=== PATIENT | female | born 1935 | race Caucasian/White ===

== ENCOUNTER → 2017-01-22 | Outpatient (REF) | payer MEDICARE ==
[2017-01-23 14:20] LABS: FERRITIN 10 NG/ML (8-252); PERCENT SATURATION 14.9 % (13.2-37.4); TOTAL IRON BINDING CAPACITY 415 UG/DL (250-450)
[2017-01-23 14:39] LABS: VITAMIN B12 LEVEL 425 PG/ML
[2017-01-23 14:48] LABS: FOLATE > 24.0 NG/ML
== END ==
LOC: M LAB REF 13:05
PROVIDERS: ATTEND Internal Medicine
DX: D64.9 Anemia, unspecified (principal)

== ENCOUNTER → 2017-01-30 | Outpatient (CLI) | payer MEDICARE ==
[~2017-01-30] MED LIST: ASPI81TA85 PO; ATEN25TA PO; AZAT5TAB PO; BENT10CA PO; BUSP15TA47 PO; CALC250T PO; CALC600T10 PO; KRIL1000 PO; LIAL1.2T PO; LISI20TA3 PO; POTA20TA PO; PRIL20CA9 PO; TYLE500T78 PO; VITA100041 PO; VYTO10TA PO
--- NOTE | 2017-01-30 13:51 | REP ---
CHEST PA AND LATERAL: 01/30/2017. Comparison 03/10/2012. Clinical history: Coronary disease. Lungs are hyperinflated with increased AP diameter of the retrosternal clear space is prominent as well. There is fibrosis, mild and pulmonary hypertension with COPD. Some upper chest bullous emphysematous changes seen to axillary clips are noted on the right. No cardiomegaly, vascular redistribution and a although the left atrium is enlarged. There is calcified aortic arch without aneurysm. Airway intact bony thorax shows demineralization without compression deformity. Impression: 1. COPD with pulmonary hypertension. Some minor fibrotic change, bullous emphysematous changes and no acute infiltrate. 2. No cardiomegaly, edema or effusion. 3. Calcified aortic arch and some tortuosity without aneurysm. 4. Bones demineralized and without compression deformity. 5. There are axillary clips on the right, unchanged. Signed by Rancho Zelaya MD 01/30/2017 01:42 P
== END ==
LOC: M RAD 10:58
PROVIDERS: ATTEND Ophthalmology
DX: I25.10 Atherosclerotic heart disease of native coronary artery without angina pectoris (principal); J44.9 Chronic obstructive pulmonary disease, unspecified; I27.2 Other secondary pulmonary hypertension; I70.0 Atherosclerosis of aorta

== ENCOUNTER → 2017-02-07 | Day surgery (SDC) | payer MEDICARE ==
--- NOTE | 2017-01-24 18:35 | CR ---
DATE OF CONSULTATION: 01/22/2017 This is a preoperative consultation for Dr. Kalyan Alston for cataract extractions scheduled 02/08/2017 and 03/07/2017 at [facility]. Dear Dr. Alston, thank you for asking me to see Ms. Josette Bauer in consultation prior to her cataract extractions. Ms. Bauer is an 82-year-old female, past medical history of coronary artery disease, peripheral artery disease (PAD), and ulcerative colitis, presenting followup of [facility] as outlined in the assessment and plan with the following concerns: The patient reports she has been plagued with ulcerative colitis for several years. She is on Lialda, Imuran, and dicyclomine. She has good days and bad days, which are not always explainable but frustrating. She follows with Dr. Alston. The patient has known coronary artery disease. She did have an episode of brief sharp chest pain at rest but no recurrence with activity. Reports she maintains her home, cleaning and housework, and denies any chest pain, palpitations, syncope, or presyncope otherwise. She does get cramps in her lower extremity, reporting that she has PAD and must try to not be over active. She reports recently needing to completely move out of her apartment while her apartment was being upgraded. This was significant physical activity with no cardiac symptoms. The patient has known anxiety. She is maintained on buspirone and feels her symptoms are controlled. The patient had updated stress testing 04/06/2016 at [facility] and was felt to be a normal past. Her last echocardiogram was 10/30/2006 and showed no significant valvular disease. Estimated ejection fraction at 60%. Patient has a history of mild chronic obstructive pulmonary disease (COPD); it does not bother her. She has refused inhalers. The patient reports a history of multiple skin cancers on her face recently, which had been removed without complications. Review of systems otherwise negative except for occasional disequilibrium, some word finding difficulties, and some dysthymia since the loss of her . PAST MEDICAL HISTORY: 1. Coronary artery disease, status post angioplasty, complicated by dissection during stent placement 02/1991, cardiac catheterization 12/11/2006 normal, stress test 04/06/2016 normal at [facility]. 2. Hyperlipidemia. 3. Hypertension. 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 5. Osteopenia. 6. Cataracts. 7. Glaucoma. 8. Right breast cancer, released from oncology. 9. Ulcerative colitis, follows with Dr. Alston, on multiple immunosuppressants. 10. Osteoarthritis (OA), degenerative joint disease (DJD). 11. Peripheral artery disease per [facility] 11/02/2012. 12. Mild COPD with spirometry 04/06/2015 showing an FVC of 76%, an FEV1 of 74% with a ratio of 0.72. 13. Multiple facial skin cancers 2016. ALLERGIES: No known drug allergies. MEDICATIONS: - alendronate 70 mg weekly - enteric-coated aspirin 81 mg daily - atenolol 25 mg nightly - buspirone 15 mg 1/2 pill twice a day - calcium 500 mg twice a day - dicyclomine as needed - Imuran 50 mg daily - krill oil 1000 mg daily - Lialda 1.2 grams three daily - lisinopril HCT 20/25 daily - omeprazole 20 mg daily - potassium chloride 20 mEq daily - Tylenol 500 mg two by mouth twice a day - vitamin D3, 1000 international units daily - Vytorin 08/09 one daily SOCIAL HISTORY: times two, lives in [place], former smoker, quit at age 44 after approximately 20 pack-years history. Wine - two to three glasses a month for alcohol. FAMILY HISTORY: Father had hypertension, hyperlipidemia, of a heart attack in his 40s. Mother had breast cancer and of Alzheimer's. A brother had possible lung cancer at 66. Another brother heart disease, diabetes. Another brother hypertension, hyperlipidemia, prostate cancer. Two sisters have had hypertension and hyperlipidemia. PHYSICAL EXAMINATION: No acute distress. Vital signs are weight 167 with a body mass index (BMI) of 30, blood pressure 112/64 with a heart rate of 63. Her oxygen saturation is 98%. HEENT exam: Head is normocephalic. The patient has multiple surgical scars which are well healed from recent skin cancer removal. Neck is supple. Pupils equal, reactive to light. She does wear eyeglasses. Extraocular movements intact. Conjunctivae not injected. Sclerae anicteric. Vision grossly intact. Ears: Tympanic membranes slightly dull. No cervical lymphadenopathy, thyromegaly. Oropharynx is benign. No carotid bruits/jugular venous distention (JVD). Respiratory: Clear to auscultation, resonant to percussion. Breasts: Exam deferred. Cardiovascular: Regular rate and rhythm. No murmur, rub, gallop. She is bradycardic. Abdomen: Soft, nontender. No hepatosplenomegaly. Extremities: No cyanosis, clubbing, edema. She has some OA changes of the DIP joints. Dermatologic: No rashes, bruises, or lesions. Neurologic: Alert and oriented times three, some difficulty with names of medications. LABORATORY DATA: EKG: Sinus bradycardia, rate of 58. No significant change compared to previous EKG. 01/22/2017 med profile: Normal except for a GFR of 53. CBC normal except for a hemoglobin and hematocrit of 11.6 and 34. Normal magnesium and thyroid. Her last lipids were normal 09/25/2016 with a total cholesterol of 197. IMPRESSION: Ms. Josette Bauer, an 82-year-old female with multiple cardiovascular risk factors including coronary artery disease, hypertension, hyperlipidemia, family history, advanced age, has no significant signs or symptoms indicative of cardiovascular ischemia and has had a normal stress test in the last year. The patient is at low risk for cardiovascular complications from the proposed surgical intervention which can be further minimized by the following: PROBLEMS: 1. Coronary artery disease. Hold aspirin morning of surgery. Take atenolol and Vytorin as usual the evening prior to surgery. 2. Hypertension. Hold lisinopril HCT morning of surgery. Take atenolol as usual the evening prior to surgery. 3. Hyperlipidemia. Take Vytorin as usual the evening prior to surgery. Hold fish oil morning of surgery. 4. Chronic obstructive pulmonary disease. Minimally symptomatic. She has refused further evaluation/treatment. 5. Ulcerative colitis. Continue Lialda, Imuran, and dicyclomine and omeprazole morning of surgery. 6. Osteoarthritis, degenerative joint disease. I have approved the use of Tylenol morning of surgery. 7. Osteopenia. Hold vitamin D, calcium, and alendronate morning of surgery. 8. Anxiety. I have approved her usual dose of buspirone morning of surgery. 9. Multiple skin cancers. Follows with dermatology. 10. Anemia, mild. Expect related to multiple medications. Expect related to her very active ulcerative colitis as well. I will check iron studies, B12, folic acid, and contact the patient with results, recommendations. Certainly not a reason to delay surgery. Thank you very much for this consultation. Please call with questions or concerns.
[~2017-02-07] VITALS: Ht 158.8 cm; Wt 75.7 kg
[~2017-02-07] MED LIST changes: +ACETAMINOPHEN 325 MG TAB PO PRN; +ACETYLCHOLINE OPHTH SOLN 1% 2ML As Ordered ONE; +BALANCED SALT IRRIGATION SOLUTION 500ML BAG (FOR OR EYE MACHINE) As Ordered ONE; +CEFUROXIME 1MG/0.1ML INTRACAMERAL INJ As Ordered ONE; +HEALON DUET (HEALON 10MG/ML 0.55ML & HEALON ENDOCOAT 30MG/ML 0.85ML) As Ordered ONE; +LIDOCAINE 0.75%/EPINEPHRINE 0.025% IN BSS 1ML SYR INTRACAMERAL (OR ONLY) As Ordered ONE; +MIDAZOLAM INJ 2 MG/2 ML VIAL (J2250) As Ordered ONE; +OFLOXACIN 0.3 % (OCUFLOX) OPTH SOL 5ML OS ONE; +PHENYLEPHRINE 2.5% OPHTH SOL 2ML OS ONE; +POVIDONE-IODINE 5% OPHTH PREP SOL 30ML As Ordered ONE; +PROPARACAINE 0.5% OPHTH SOL 15ML OS ONE; +TOBRADEX OPHTH OINT 3.5 GM As Ordered ONE; +TRIMETHOBENZAMIDE 300 MG CAP PO PRN; +TROPICAMIDE 1% OPHTH SOLN 2 ML OS ONE; +fentaNYL 100 MCG/2 ML INJECTION (J3010) As Ordered ONE
[2017-02-07] MEDS: MANNITOL 25% 12.5 GM/50 ML VIAL (J2150) As Ordered ONE ×2 (10:22→10:24)
[2017-02-07] MEDS: AcetaZOLAMIDE 500 MG ER CAP PO SCH ×2 (11:12→11:49)
[2017-02-07 12:00] VITALS: BP 130/60
== END | disposition home or self-care (01) ==
LOC: M SDC 08:21
PROVIDERS: ATTEND Ophthalmology
DX: H25.12 Age-related nuclear cataract, left eye (principal); I25.10 Atherosclerotic heart disease of native coronary artery without angina pectoris; I10 Essential (primary) hypertension; Z98.61 Coronary angioplasty status; K21.9 Gastro-esophageal reflux disease without esophagitis; Z79.82 Long term (current) use of aspirin; J44.9 Chronic obstructive pulmonary disease, unspecified; Z79.899 Other long term (current) drug therapy; Z92.3 Personal history of irradiation; K58.8 Other irritable bowel syndrome
CPT/HCPCS: 66984; J2150; J2250; J3010; V2632

== ENCOUNTER → 2017-04-01 | Outpatient (REF) | payer MEDICARE ==
[~2017-04-01] MED LIST changes: -ACETAMINOPHEN 325 MG TAB PO PRN; -ACETYLCHOLINE OPHTH SOLN 1% 2ML As Ordered ONE; -BALANCED SALT IRRIGATION SOLUTION 500ML BAG (FOR OR EYE MACHINE) As Ordered ONE; -CEFUROXIME 1MG/0.1ML INTRACAMERAL INJ As Ordered ONE; -HEALON DUET (HEALON 10MG/ML 0.55ML & HEALON ENDOCOAT 30MG/ML 0.85ML) As Ordered ONE; -LIDOCAINE 0.75%/EPINEPHRINE 0.025% IN BSS 1ML SYR INTRACAMERAL (OR ONLY) As Ordered ONE; -MIDAZOLAM INJ 2 MG/2 ML VIAL (J2250) As Ordered ONE; -OFLOXACIN 0.3 % (OCUFLOX) OPTH SOL 5ML OS ONE; -PHENYLEPHRINE 2.5% OPHTH SOL 2ML OS ONE; -POVIDONE-IODINE 5% OPHTH PREP SOL 30ML As Ordered ONE; -PROPARACAINE 0.5% OPHTH SOL 15ML OS ONE; -TOBRADEX OPHTH OINT 3.5 GM As Ordered ONE; -TRIMETHOBENZAMIDE 300 MG CAP PO PRN; -TROPICAMIDE 1% OPHTH SOLN 2 ML OS ONE; -fentaNYL 100 MCG/2 ML INJECTION (J3010) As Ordered ONE
[2017-04-01 20:06] LABS: PERCENT SATURATION 22.3 % (13.2-37.4)
== END ==
LOC: M LAB REF 17:38
PROVIDERS: ATTEND Nurse Practitioner Family
DX: D50.9 Iron deficiency anemia, unspecified (principal)

== ENCOUNTER 2017-08-01 08:20 | Day surgery (SDC) | payer MEDICARE ==
--- NOTE | 2017-07-31 13:11 | CR ---
DATE OF CONSULTATION: 07/31/2017 Preoperative consultation on Josette Bauer for Dr. Alston for right cataract extraction at [facility] 08/01/2017. Dear Dr. Alston: Thank you for asking me to see Ms. Josette Bauer in consultation prior to her right cataract extraction. As you know, Ms. Bauer is an 82-year-old female with a past medical history of coronary artery disease/peripheral artery disease (CAD/PAD), ulcerative colitis, who reports that her left cataract extraction was uncomplicated in January, but right cataract extraction was delayed because of a gastrointestinal (GI) illness. Patient has known ulcerative colitis, follows closely with Dr. Alston, is compliant with her medications including Lialda and dicyclomine and Imuran. The patient reports bowels are back on track. She does have a couple episodes per month of cramps and diarrhea. She has some scant amount of bleeding every other day, but this is chronic, stable. She feels she has irritable bowel syndrome (IBS) as well and uses dicyclomine for this. The patient has known CAD. She denies any chest pain, palpitations, syncope. She does note if she stands too quickly she could be lightheaded. The patient is pleased that her weight is down. She reports this is intentional, but believes it is really secondary to loss of her 3 years ago and the less need for her to cook. In general she reports she has two meals a day and does not snack. 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 The patient has osteoarthritis, particularly hands, ankle, feet. She takes Tylenol Extra Strength 2 pills twice a day. The patient does have some mild sinus congestion and cough. She believes this is her usual allergy symptoms. She denies any fevers or chills. Patient has a history of known anxiety maintained on buspirone and feels she is symptomatically controlled. Review of systems is otherwise negative. Denying any chest pain, palpitations, syncope, change in chronic bowel issues, nausea, vomiting, fevers or chills. PAST MEDICAL HISTORY: 1. CAD status post angioplasty complicated by dissection during stent placement 02/1991. Cardiac catheterization 12/11/2006 normal. Stress test 04/06/2016 normal at [facility] . 2. Hyperlipidemia. 3. Hypertension. 4. 4, para 4, spontaneous AB 1. 5. Osteopenia. 6. Cataracts. Status post left cataract extraction January 2017. 7. Glaucoma. 8. Right breast cancer released from oncology. 9. Ulcerative colitis. Follows with Dr. Alston. 10. Osteoarthritis (OA) degenerative joint disease (DJD). 11. PAD per [facility] 11/02/2012. 12. Mild chronic obstructive pulmonary disease (COPD) with spirometry 04/06/2015 showing an FVC of 76%, FEV-1 of 74%. 13. Multiple skin cancers. DRUG ALLERGIES: None known. MEDICATIONS: - baby aspirin daily - buspirone 15 mg one half p.o. b.i.d. - calcium 500 mg two times a day - dicyclomine 10 mg three times day - Imuran 50 mg daily - krill oil 1000 mg daily - Lialda 1.2 grams 3 pills in the a.m. - lisinopril HCT 20/25 daily - atenolol 25 mg at bedtime - omeprazole 20 mg daily - potassium chloride 20 mEq daily - Tylenol Extra Strength 2 pills twice a day - vitamin D3 1000 international units daily - Vytorin 10/20 one daily SOCIAL HISTORY: times two, lives in [place]. Former smoker, quit at age 44 after approximately a 20 pack-year history. Wine 2-3 glasses a month. FAMILY HISTORY: Father had hypertension, hyperlipidemia, of a heart attack in his 40s. Mom had breast cancer and of Alzheimer's. A brother had possible lung cancer at 66. Another brother heart disease, diabetes. Another brother hypertension, hyperlipidemia, prostate cancer. Two sisters have hypertension and hyperlipidemia. PHYSICAL EXAMINATION: No acute distress. Vital signs are weight 158 with a BMI of 28, O2 sat is 99%, blood pressure 102/78 with a heart rate of 44. HEENT EXAMINATION: Head is normocephalic. Neck is supple. She wears eyeglasses. Pupils equal, react to light. Extraocular movements are intact. Scant amount of cerumen bilaterally. She has multiple surgical scars which are well healed from skin cancer removals. NECK: Supple. No thyromegaly, jugular venous distention (JVD) or carotid bruits. RESPIRATORY: Clear to auscultation, resonant to percussion. BREAST EXAM: Deferred. CARDIOVASCULAR: Bradycardic but regular. No significant murmur, rub, gallop. ABDOMEN: Soft, nontender. No hepatosplenomegaly. EXTREMITIES: No cyanosis, clubbing or edema. Some OA changes of the DIP joints. NEUROLOGIC: Alert and oriented times three. Cranial nerves II through XII intact. LABORATORY DATA: From 07/30/2017: med profile GFR is 43. CBC improved anemia with an hemoglobin and hematocrit of 11.7 and 35. Iron studies were normal 04/01/2017. Lipids were excellent 03/26/2017. EKG shows sinus bradycardia rate of 44. [place] of 11 degrees. Normal TN, QRS, QTC interval, early R-wave progression, essentially unchanged except for increased bradycardia compared to last EKG. IMPRESSION: Ms. Josette Bauer an 82-year-old female with multiple cardiovascular risk factors including CAD, hypertension, hyperlipidemia, family history, advanced age with no significant signs or symptoms indicative of active cardiovascular ischemia. She had a normal stress test last year. The patient is at low risk for cardiovascular complications from the proposed surgical intervention which can be further minimized by the following. 1. CAD. Hold aspirin a.m. of surgery. Because of bradycardia, I will be changing atenolol to metoprolol ER 12.5 at bedtime. She will take this the evening prior to surgery as well as her Vytorin. 2. Hypertension. [place] aggressively controlled. Some mild orthostasis symptoms. I will lower lisinopril HCT to 10/12.5. She will hold this the morning of surgery. As above, her atenolol will be changed to a lower dose of metoprolol. She will have a recheck in this office in about 3 weeks. 3. Hyperlipidemia. Take Vytorin as usual the evening prior to surgery. 4. COPD. Minimally symptomatic, hold for further evaluation and treatment. 5. Ulcerative colitis. She will hold her Lialda, Imuran, dicyclomine a.m. of surgery but resume after surgery. I have encouraged to take her omeprazole the a.m. of surgery. 6. OA DJD. I have approved the use of Tylenol a.m. of surgery. 7. Osteopenia. She will hold vitamin D, calcium a.m. of surgery. 8. Anxiety. I have approved her taking her usual dose of buspirone the a.m. of surgery. 9. Anemia. Mild, improved. Expect multifactorial. Recent iron studies, B12, folic acid were normal. This will continue to be monitored. Thank you very much for this consultation. Please call with any questions or concerns.
[~2017-08-01] VITALS: Ht 157.5 cm; Wt 72.6 kg
[~2017-08-01 08:20] MED LIST changes: +AZAT50TA2 PO; -AZAT5TAB PO; -CALC600T10 PO; +CALC600T31 PO; +EZET10TA PO; +MIDAZOLAM INJ 2 MG/2 ML VIAL (J2250) As Ordered ONE; +VITA-182 PO; -VITA100041 PO; -VYTO10TA PO; +VYTO10TA22 PO; +fentaNYL 100 MCG/2 ML INJECTION (J3010) As Ordered ONE
[2017-08-01] MEDS ORDERED: FILTER 1.2 MICRON EXT SET (ADULT TPN & MANNITOL) XX ONE (08:58)
[2017-08-01] MEDS ORDERED: PROPARACAINE 0.5% OPHTH SOL 15ML OD ONE (09:00)
[2017-08-01] MEDS ORDERED: TROPICAMIDE 1% OPHTH SOLN 2ML OD ONE (09:00)
[2017-08-01] MEDS ORDERED: PHENYLEPHRINE 2.5% OPHTH SOL 2ML OD ONE (09:00)
[2017-08-01] MEDS ORDERED: OFLOXACIN 0.3 % (OCUFLOX) OPTH SOL 5ML OD ONE (09:00)
[2017-08-01] MEDS ORDERED: MANNITOL 20% IV ONE (09:00)
[2017-08-01] MEDS ORDERED: LR 1,000 ML IV SCH (09:30)
[2017-08-01] MEDS ORDERED: ACETYLCHOLINE OPHTH SOLN 1% 2ML (MIOCHOL-E) As Ordered ONE (09:34)
[2017-08-01] MEDS ORDERED: LIDOCAINE 0.75%/EPINEPHRINE 0.025% IN BSS 1ML SYR INTRACAMERAL (OR ONLY) As Ordered ONE (09:34)
[2017-08-01] MEDS ORDERED: POVIDONE-IODINE 5% OPHTH PREP SOL 30ML As Ordered ONE (09:34)
[2017-08-01] MEDS ORDERED: BALANCED SALT IRRIGATION SOLUTION 500ML BAG (FOR OR EYE MACHINE) As Ordered ONE (09:34)
[2017-08-01] MEDS ORDERED: CEFUROXIME 1MG/0.1ML INTRACAMERAL INJ As Ordered ONE (09:34)
[2017-08-01] MEDS ORDERED: DUOVISC (0.50ML VISCOAT/0.55ML PROVISC) OPHTH KIT As Ordered ONE (09:35)
[2017-08-01] MEDS ORDERED: TETRACAINE 0.5% OPHTH SOLN 4ML As Ordered ONE (09:43)
[2017-08-01 10:20] VITALS: BP 122/57
--- NOTE | 2017-08-02 15:02 | RO ---
DATE OF PROCEDURE: 08/01/2017 PREOPERATIVE DIAGNOSIS: Visually significant nuclear sclerotic cataract right eye. POSTOPERATIVE DIAGNOSIS: Visually significant nuclear sclerotic cataract right eye. PROCEDURE: Cataract extraction with use of phacoemulsification and placement of intraocular lens, AU00T0, 24.0 diopters, right eye. SURGEON: Kalyan Alston DO COMMERCIAL CREDIT ANALYST: ANESTHESIA: Local with monitored anesthesia care (MAC). COMPLICATIONS: None. POSTOPERATIVE CONDITION: Stable. INDICATION FOR SURGERY: Blurred vision right eye affecting patient's activities of daily living. DESCRIPTION OF PROCEDURE: The patient was seen in the preoperative area and properly identified. The correct operative eye was identified and marked. Attention was turned to that eye. The patient received topical antibiotics in the preoperative area. The patient then received topical dilating drops consisting of tropicamide and phenylephrine. The patient was then transferred to the operating room. The correct side was re-identified. The patient received topical anesthetics and antibiotics on the surface of the eye. The eye was prepped and draped in a sterile fashion. The upper and lower eyelids were isolated with Tegaderm tape, and the lids were held open with an adjustable speculum. Using a sideport blade, a paracentesis incision was made. Intraocular preservative-free lidocaine was then injected into the anterior chamber. Viscoelastic was then injected into the anterior chamber through the paracentesis. Using a 2.4 mm sharp-tipped keratome, the anterior chamber was entered via a temporal clear corneal incision. A continuous curvilinear capsulorrhexis was created with the aid of a 26-gauge cystotome and Utrata forceps. Hydrodissection was performed with balanced salt solution (BSS) on a blunt cannula until the nucleus was freely mobile. The crystalline lens was phacoemulsified and aspirated. Additional cohesive viscoelastic was placed into the capsular bag to deepen it. An AU00T0, 24.0 diopters lens was placed into the capsular bag and confirmed by visualizing the continuous curvilinear capsulorrhexis. Additional irrigation and aspiration was used to remove cortical material and remaining viscoelastic. The clear corneal incision was hydrated with BSS on a blunt cannula. The lens was well positioned. The incisions were then tested for leaks and found to be negative. The eye was then palpated for appropriate pressure and adjusted accordingly with BSS. The eyelid speculum was carefully removed. A shield was placed. The patient tolerated the procedure well and was discharged to the recovery unit in a stable condition. ROBB
== END 2017-08-01 10:25 | disposition home or self-care (01) ==
LOC: M SDC 08:20
PROVIDERS: ATTEND Ophthalmology
DX: H25.11 Age-related nuclear cataract, right eye (principal); I25.10 Atherosclerotic heart disease of native coronary artery without angina pectoris; I10 Essential (primary) hypertension; Z98.61 Coronary angioplasty status; Z79.82 Long term (current) use of aspirin; E78.5 Hyperlipidemia, unspecified; Z87.891 Personal history of nicotine dependence; J44.9 Chronic obstructive pulmonary disease, unspecified; K58.8 Other irritable bowel syndrome; K21.9 Gastro-esophageal reflux disease without esophagitis
CPT/HCPCS: 66984; J2250; J3010; V2632

== ENCOUNTER → 2017-12-23 | Outpatient (REF) | payer MEDICARE ==
[2017-12-23 19:31] LABS: C REACTIVE PROTEIN QUANTITATIV 0.32 MG/DL (0.00-0.30)
[2017-12-25 10:15] LABS: QUANTIFERON GOLD TB Negative (Negative); TB Test (QFT) Antigen 0.05 IU/mL (.); TB Test (QFT) Antigen Minus Ni 0.02 IU/mL (.); TB Test (QFT) Mitogen 5.86 IU/mL (.); TB Test (QFT) Nil 0.03 IU/mL (.)
== END ==
LOC: M LAB REF 17:24
DX: K51.90 Ulcerative colitis, unspecified, without complications (principal)
CPT/HCPCS: 86140

== ENCOUNTER 2018-01-15 16:12 | Outpatient (CLI) | payer MEDICARE ==
[2018-01-15] MEDS: ACETAMINOPHEN TAB 650MG DOSE (2X325MG) PO (16:00)
[2018-01-15] MEDS: diphenhydrAMINE 25 MG CAP PO (16:28)
[2018-01-15] MEDS: VEDOLIZUMAB 300 MG in NS 250 ML IV (16:43)
== END 2018-01-15 18:00 | disposition home or self-care (01) ==
LOC: M INFU 16:12
DX: K51.919 Ulcerative colitis, unspecified with unspecified complications (principal); E78.00 Pure hypercholesterolemia, unspecified; M12.9 Arthropathy, unspecified; Z79.82 Long term (current) use of aspirin; Z79.899 Other long term (current) drug therapy; Z95.5 Presence of coronary angioplasty implant and graft
CPT/HCPCS: J3380

== ENCOUNTER 2018-01-29 09:43 | Outpatient (CLI) | payer MEDICARE ==
[2018-01-29] MEDS: ACETAMINOPHEN TAB 650MG DOSE (2X325MG) PO (10:00)
[2018-01-29] MEDS: diphenhydrAMINE 25 MG CAP PO (10:12)
[2018-01-29] MEDS: VEDOLIZUMAB 300 MG in NS 250 ML IV (10:14)
== END 2018-01-29 11:00 | disposition home or self-care (01) ==
LOC: M INFU 09:43
DX: K51.90 Ulcerative colitis, unspecified, without complications (principal); Z79.82 Long term (current) use of aspirin; Z79.899 Other long term (current) drug therapy; F17.210 Nicotine dependence, cigarettes, uncomplicated
CPT/HCPCS: J3380

== ENCOUNTER 2018-02-26 13:11 | Outpatient (CLI) | payer MEDICARE ==
[2018-02-26] MEDS: diphenhydrAMINE 25 MG CAP PO (13:45)
[2018-02-26] MEDS: VEDOLIZUMAB 300 MG in NS 250 ML IV (13:47)
[2018-02-26] MEDS ORDERED: ACETAMINOPHEN TAB 650MG DOSE (2X325MG) PO (14:00)
== END 2018-02-26 14:45 | disposition home or self-care (01) ==
LOC: M INFU 13:11
DX: K51.90 Ulcerative colitis, unspecified, without complications (principal); I10 Essential (primary) hypertension; M12.9 Arthropathy, unspecified; F17.210 Nicotine dependence, cigarettes, uncomplicated; Z79.82 Long term (current) use of aspirin; Z79.899 Other long term (current) drug therapy; Z80.3 Family history of malignant neoplasm of breast; Z85.828 Personal history of other malignant neoplasm of skin
CPT/HCPCS: J3380

== ENCOUNTER 2018-04-24 15:17 | Outpatient (CLI) | payer MEDICARE ==
[2018-04-24] MEDS: diphenhydrAMINE 25 MG CAP PO (15:28)
[2018-04-24] MEDS: ACETAMINOPHEN TAB 650MG DOSE (2X325MG) PO (15:30)
[2018-04-24] MEDS: VEDOLIZUMAB 300 MG in NS 250 ML IV (15:33)
== END 2018-04-24 16:25 | disposition home or self-care (01) ==
LOC: M INFU 15:17
DX: K51.90 Ulcerative colitis, unspecified, without complications (principal); Z95.5 Presence of coronary angioplasty implant and graft; Z79.82 Long term (current) use of aspirin; Z79.899 Other long term (current) drug therapy
CPT/HCPCS: J3380

== ENCOUNTER 2018-06-19 15:13 | Outpatient (CLI) | payer MEDICARE ==
[2018-06-19] MEDS ORDERED: diphenhydrAMINE 25 MG CAP PO (15:30)
[2018-06-19] MEDS ORDERED: ACETAMINOPHEN TAB 650MG DOSE (2X325MG) PO (15:30)
[2018-06-19] MEDS ORDERED: VEDOLIZUMAB 300 MG in NS 250 ML IV (15:30)
== END 2018-06-19 16:30 ==
LOC: M INFU 15:13
DX: K51.90 Ulcerative colitis, unspecified, without complications (principal); K50.90 Crohn's disease, unspecified, without complications
CPT/HCPCS: 96365

== ENCOUNTER 2018-08-14 11:17 | Outpatient (CLI) | payer MEDICARE ==
[2018-08-14] MEDS: ACETAMINOPHEN TAB 650MG DOSE (2X325MG) PO (12:00)
[2018-08-14] MEDS: VEDOLIZUMAB 300 MG in NS 250 ML IV (12:00)
[2018-08-14] MEDS: diphenhydrAMINE 25 MG CAP PO (12:00)
== END 2018-08-14 13:00 | disposition home or self-care (01) ==
LOC: M INFU 11:17
DX: K51.90 Ulcerative colitis, unspecified, without complications (principal); Z79.82 Long term (current) use of aspirin; Z79.899 Other long term (current) drug therapy
CPT/HCPCS: J3380

== ENCOUNTER 2018-09-29 14:11 | Outpatient (CLI) | payer MEDICARE ==
[2018-09-29] MEDS: ACETAMINOPHEN TAB 650MG DOSE (2X325MG) PO (14:30)
[2018-09-29] MEDS: diphenhydrAMINE 25 MG CAP PO (14:37)
[2018-09-29] MEDS: VEDOLIZUMAB 300 MG in NS 250 ML IV (14:55)
== END 2018-09-29 15:40 | disposition home or self-care (01) ==
LOC: M INFU 14:11
DX: K50.90 Crohn's disease, unspecified, without complications (principal)
CPT/HCPCS: J3380

== ENCOUNTER 2018-10-12 12:36 | Emergency (ER) | payer MEDICARE ==
[~2018-10-12] VITALS: Ht 160 cm; Wt 70.5 kg
[~2018-10-12 12:36] MED LIST changes: +KLOR20TA42 PO; -MIDAZOLAM INJ 2 MG/2 ML VIAL (J2250) As Ordered ONE; -POTA20TA PO; -fentaNYL 100 MCG/2 ML INJECTION (J3010) As Ordered ONE
[2018-10-12] MEDS ORDERED: DICY10CA13 PO (13:12)
[2018-10-12] MEDS ORDERED: [UNRECOGNIZED DRUG - OTHER] PO (13:12)
[2018-10-12] MEDS ORDERED: MESA1.2T PO (13:12)
[2018-10-12] MEDS ORDERED: POTA20TA6 PO (13:12)
[2018-10-12] MEDS ORDERED: Lisinopril-Hctz PO (13:12)
[2018-10-12] MEDS ORDERED: OMEP20CA3 PO (13:12)
[2018-10-12] MEDS ORDERED: METO1TAB32 PO (13:12)
[2018-10-12] MEDS ORDERED: GI COCKTAIL 50ML BTL(HYOSCYAMINE/MAALOX/LIDOCAINE VISCOUS)(1:3:1) PO ONE (13:15)
[2018-10-12 13:23] LABS: BASO % 0.5 % (0.0-1.0); EOS # 0.1 10^3/uL (0.0-0.50); EOS % 2.4 % (0.0-3.0); HEMATOCRIT 39.5 % (36.0-47.0); HEMOGLOBIN 12.6 g/dl (12.0-15.5); LYMPH # 1.4 10^3/uL (1.5-4.5); LYMPH % 23.8 % (24.0-44.0); MEAN CORPUSCULAR HEMOGLOBIN 28.7 pg (27.0-33.0); MEAN CORPUSCULAR HGB CONC 31.9 g/dl (32.0-36.5); MONO # 0.6 10^3/uL (0.0-0.8); MONO % 9.8 % (0.0-5.0); NEUTROPHILS # 3.7 10^3/uL (1.8-7.7); NEUTROPHILS % 63.3 % (36.0-66.0); PLATELET COUNT, AUTOMATED 303 10^3/uL (150-450); RED BLOOD COUNT 4.39 10^6/uL (4.00-5.40); WHITE BLOOD COUNT 5.8 10^3/uL (4.0-10.0)
--- NOTE | 2018-10-12 13:31 | REP ---
Clinical: Acute chest pain . Comparison: 01/30/2017 . Technique: PA and lateral. Findings: The mediastinum and cardiac silhouette are normal. The lung armstrong demonstrate stable chronic changes without acute consolidation, effusion, or pneumothorax. The skeletal structures are intact and normal. Impression: Chronic stable changes. No acute cardiopulmonary process. Electronically Signed by Malik Lynn MD 10/12/2018 01:23 P
[2018-10-12 13:39] LABS: INR 0.94; PROTHROMBIN TIME 12.7 SECONDS (12.1-14.4)
[2018-10-12 13:40] LABS: PARTIAL THROMBOPLASTIN TIME 30.1 SECONDS (25.4-37.6)
[2018-10-12 14:02] LABS: ALBUMIN 3.8 GM/DL (3.2-5.2); ALT/SGPT 23 U/L (12-78); BILIRUBIN,DIRECT 0.1 MG/DL (0.0-0.2); BILIRUBIN,TOTAL 0.3 MG/DL (0.2-1.0); BLOOD UREA NITROGEN 24 MG/DL (7-18); C REACTIVE PROTEIN QUANTITATIV < 0.30 MG/DL (0.00-0.30); CALCIUM LEVEL 9.2 MG/DL (8.8-10.2); CARBON DIOXIDE LEVEL 25 MEQ/L (21-32); CHLORIDE LEVEL 106 MEQ/L (98-107); CPK CREATINE PHOSPHOKINASE 64 U/L (26-192); GLOMERULAR FILTRATION RATE 56.6 (>32); GLUCOSE, FASTING 88 MG/DL (70-100); MB/CK RELATIVE INDEX 1.88 (< OR =4); NT-PRO BNP 142 PG/ML (<450); POTASSIUM SERUM 3.9 MEQ/L (3.5-5.1); SODIUM LEVEL 140 MEQ/L (136-145); TROPONIN I < 0.02 NG/ML (< 0.10)
[2018-10-12 14:09] LABS: ERYTHROCYTE SEDIMENTATION RATE 7 mm/hr (0-30)
[2018-10-12] MEDS ORDERED: CARA1TAB6 PO (15:05)
[2018-10-12 15:29] VITALS: BP 173/78
--- NOTE | 2018-10-12 19:33 | ECGEPIP ---
Stationary ECG Study [facility] - ED Test Date: 2018-10-12 Pat Name: DAVE DAVIS Department: Room: - Gender: F Appliquer: : 1935 Requested By: Zuleika Chan Order Number: [id number] Reading MD: Zuleika Chan Measurements Intervals [place] Rate: 55 P: 68 HI: 159 QRS: -7 QRSD: 102 T: 50 QT: 422 QTc: 404 Interpretive Statements SINUS BRADYCARDIA PROBABLE SEPTAL MYOCARDIAL INFARCTION, PROBABLY OLD LEFTWARD AXIS NONSPECIFIC ST T WAVE CHANGES NO OLD ECG FOR COMPARISON Electronically Signed On 10-12-2018 19:32:47 EST by Zuleika Chan
== END 2018-10-12 15:41 | disposition home or self-care (01) ==
LOC: M ED 12:36
DX: K21.9 Gastro-esophageal reflux disease without esophagitis (principal); I10 Essential (primary) hypertension; J44.9 Chronic obstructive pulmonary disease, unspecified; I25.10 Atherosclerotic heart disease of native coronary artery without angina pectoris; E78.5 Hyperlipidemia, unspecified; H40.9 Unspecified glaucoma; Z87.19 Personal history of other diseases of the digestive system; Z79.899 Other long term (current) drug therapy; Z79.82 Long term (current) use of aspirin

== ENCOUNTER 2018-11-10 11:53 | Outpatient (CLI) | payer MEDICARE ==
[~2018-11-10] VITALS: Ht 157.5 cm; Wt 70.0 kg
[~2018-11-10 11:53] MED LIST changes: +CARA1TAB6 PO; +DICY10CA13 PO; +Lisinopril-Hctz PO; +MESA1.2T PO; +METO1TAB32 PO; +OMEP20CA3 PO; +POTA20TA6 PO; +[UNRECOGNIZED DRUG - OTHER] PO
[2018-11-10 12:00] VITALS: BP 94/53
[2018-11-10] MEDS ORDERED: diphenhydrAMINE 25 MG CAP PO ONE (12:00)
[2018-11-10] MEDS ORDERED: VEDOLIZUMAB 300 MG in NS 250 ML IV ONE (12:00)
[2018-11-10] MEDS ORDERED: ACETAMINOPHEN TAB 650MG DOSE (2X325MG) PO ONE (12:00)
[2018-11-10 13:50] VITALS: BP 131/65
== END 2018-11-10 13:50 | disposition home or self-care (01) ==
LOC: M INFU 11:53
PROVIDERS: ATTEND Internal Medicine Gastroenterology
DX: K50.90 Crohn's disease, unspecified, without complications (principal)
CPT/HCPCS: 96365; J3380

== ENCOUNTER 2018-12-22 12:00 | Outpatient (CLI) | payer MEDICARE ==
[~2018-12-22] VITALS: Ht 157.5 cm; Wt 70.0 kg
[2018-12-22 12:05] VITALS: BP 99/54
[2018-12-22] MEDS ORDERED: ACETAMINOPHEN TAB 650MG DOSE (2X325MG) PO ONE (12:15)
[2018-12-22] MEDS ORDERED: diphenhydrAMINE 25 MG CAP PO ONE (12:15)
[2018-12-22] MEDS ORDERED: VEDOLIZUMAB 300 MG in NS 250 ML IV ONE (12:30)
[2018-12-22 13:38] VITALS: BP 134/62
== END 2018-12-22 13:45 | disposition home or self-care (01) ==
LOC: M INFU 12:00
PROVIDERS: ATTEND Internal Medicine Gastroenterology
DX: K51.90 Ulcerative colitis, unspecified, without complications (principal); K50.90 Crohn's disease, unspecified, without complications
CPT/HCPCS: 96365; J3380

== ENCOUNTER → 2019-01-10 | Outpatient (REF) | payer MEDICARE ==
[2019-01-10 15:00] LABS: INFLUENZA A AMPLIFICATION POSITIVE (NEGATIVE); INFLUENZA B AMPLIFICATION NEGATIVE (NEGATIVE)
== END ==
LOC: M LAB REF 14:19
PROVIDERS: ATTEND Nurse Practitioner Family
DX: J11.1 Influenza due to unidentified influenza virus with other respiratory manifestations (principal)

== ENCOUNTER 2019-02-02 12:25 | Outpatient (CLI) | payer MEDICARE ==
[~2019-02-02] VITALS: Ht 162.6 cm; Wt 70.0 kg
[2019-02-02 12:46] VITALS: BP 118/56
[2019-02-02] MEDS ORDERED: ACETAMINOPHEN TAB 650MG DOSE (2X325MG) PO ONE (13:00)
[2019-02-02] MEDS ORDERED: diphenhydrAMINE 25 MG CAP PO ONE (13:00)
[2019-02-02] MEDS ORDERED: VEDOLIZUMAB 300 MG in NS 250 ML IV ONE (13:00)
[2019-02-02 14:00] VITALS: BP 98/41
== END 2019-02-02 14:00 | disposition home or self-care (01) ==
LOC: M INFU 12:25
PROVIDERS: ATTEND Internal Medicine Gastroenterology
DX: K51.90 Ulcerative colitis, unspecified, without complications (principal)
CPT/HCPCS: 96365; J3380

== ENCOUNTER 2019-03-17 12:21 | Outpatient (CLI) | payer MEDICARE ==
[~2019-03-17] VITALS: Ht 162.6 cm; Wt 70.5 kg
[~2019-03-17 12:21] MED LIST changes: -EZET10TA PO; +EZET10TA21 PO
[2019-03-17 12:45] VITALS: BP 110/56
[2019-03-17] MEDS ORDERED: ACETAMINOPHEN TAB 650MG DOSE (2X325MG) PO ONE (12:45)
[2019-03-17] MEDS ORDERED: diphenhydrAMINE 25 MG CAP PO ONE (12:45)
[2019-03-17] MEDS: VEDOLIZUMAB 300 MG in NS 250 ML IV ONE ×2 (13:17→13:29)
[2019-03-17 14:00] VITALS: BP 118/58
== END 2019-03-17 14:00 | disposition home or self-care (01) ==
LOC: M INFU 12:21
PROVIDERS: ATTEND Internal Medicine Gastroenterology
DX: K51.90 Ulcerative colitis, unspecified, without complications (principal)
CPT/HCPCS: 96365; J3380

== ENCOUNTER 2019-04-28 13:20 | Outpatient (CLI) | payer MEDICARE ==
[~2019-04-28] VITALS: Ht 162.6 cm; Wt 70.0 kg
[~2019-04-28 13:20] MED LIST changes: -OMEP20CA3 PO; +OMEP20CA4 PO
[2019-04-28 13:30] VITALS: BP 132/56
[2019-04-28] MEDS ORDERED: diphenhydrAMINE 25 MG CAP PO ONE (14:15)
[2019-04-28] MEDS ORDERED: ACETAMINOPHEN TAB 650MG DOSE (2X325MG) PO ONE (14:15)
[2019-04-28 14:45] VITALS: BP 122/60
[2019-04-28] MEDS ORDERED: VEDOLIZUMAB 300 MG in NS 250 ML IV ONE (15:00)
== END 2019-04-28 14:50 | disposition home or self-care (01) ==
LOC: M INFU 13:20
PROVIDERS: ATTEND Internal Medicine Gastroenterology
DX: K51.90 Ulcerative colitis, unspecified, without complications (principal)
CPT/HCPCS: 96365; J3380

== ENCOUNTER 2019-06-09 13:43 | Outpatient (CLI) | payer MEDICARE ==
[~2019-06-09] VITALS: Ht 162.6 cm; Wt 70.0 kg
[~2019-06-09 13:43] MED LIST changes: +LISI20TA20 PO; -LISI20TA3 PO
[2019-06-09 13:50] VITALS: BP 121/59
[2019-06-09] MEDS: ACETAMINOPHEN TAB 650MG DOSE (2X325MG) PO ONE (14:19)
[2019-06-09] MEDS: diphenhydrAMINE 25 MG CAP PO ONE (14:19)
[2019-06-09] MEDS: VEDOLIZUMAB 300 MG in NS 250 ML IV ONE (14:22)
[2019-06-09 14:55] VITALS: BP 116/56
== END 2019-06-09 15:15 | disposition home or self-care (01) ==
LOC: M INFU 13:43
PROVIDERS: ATTEND Internal Medicine Gastroenterology
DX: K51.90 Ulcerative colitis, unspecified, without complications (principal)
CPT/HCPCS: 96365; J3380

== ENCOUNTER 2019-07-21 13:39 | Outpatient (CLI) | payer MEDICARE ==
[~2019-07-21] VITALS: Ht 162.6 cm; Wt 70.0 kg
[2019-07-21 13:45] VITALS: BP 98/51
[2019-07-21] MEDS ORDERED: VEDOLIZUMAB 300 MG in NS 250 ML IV ONE (15:00)
[2019-07-21] MEDS ORDERED: ACETAMINOPHEN TAB 650MG DOSE (2X325MG) PO ONE (15:00)
[2019-07-21] MEDS ORDERED: diphenhydrAMINE 25 MG CAP PO ONE (15:00)
[2019-07-21 15:30] VITALS: BP 132/68
== END 2019-07-21 15:30 | disposition home or self-care (01) ==
LOC: M INFU 13:39
PROVIDERS: ATTEND Internal Medicine Gastroenterology
DX: K51.90 Ulcerative colitis, unspecified, without complications (principal)
CPT/HCPCS: 96365; J3380

== ENCOUNTER 2019-10-26 12:45 | Outpatient (CLI) | payer MEDICARE ==
[~2019-10-26] VITALS: Ht 162.6 cm; Wt 70.0 kg
[~2019-10-26 12:45] MED LIST changes: +OMEP-172 PO; -OMEP20CA4 PO
[2019-10-26 12:50] VITALS: BP 107/61
[2019-10-26] MEDS ORDERED: diphenhydrAMINE 25 MG CAP PO ONE (13:00)
[2019-10-26] MEDS ORDERED: ACETAMINOPHEN TAB 650MG DOSE (2X325MG) PO ONE (13:00)
[2019-10-26] MEDS ORDERED: VEDOLIZUMAB 300 MG in NS 250 ML IV ONE (14:00)
[2019-10-26 14:50] VITALS: BP 101/57
== END 2019-10-26 14:50 | disposition home or self-care (01) ==
LOC: M INFU 12:45
PROVIDERS: ATTEND Internal Medicine Gastroenterology
DX: K51.919 Ulcerative colitis, unspecified with unspecified complications (principal)
CPT/HCPCS: 96365; J3380

== ENCOUNTER 2019-12-07 12:23 | Outpatient (CLI) | payer MEDICARE ==
[~2019-12-07] VITALS: Ht 162.6 cm; Wt 70.0 kg
[~2019-12-07 12:23] MED LIST changes: -OMEP-172 PO; +OMEP1CAP73 PO
[2019-12-07 12:30] VITALS: BP 113/55
[2019-12-07] MEDS ORDERED: diphenhydrAMINE 25 MG CAP PO ONE (13:00)
[2019-12-07] MEDS ORDERED: ACETAMINOPHEN TAB 650MG DOSE (2X325MG) PO ONE (13:00)
[2019-12-07] MEDS ORDERED: VEDOLIZUMAB 300 MG in NS 250 ML IV ONE (13:00)
[2019-12-07 13:45] VITALS: BP 115/54
== END 2019-12-07 13:45 | disposition home or self-care (01) ==
LOC: M INFU 12:23
PROVIDERS: ATTEND Internal Medicine Gastroenterology
DX: K50.90 Crohn's disease, unspecified, without complications (principal)
CPT/HCPCS: 96365; J3380

== ENCOUNTER 2020-04-11 12:43 | Outpatient (CLI) | payer MEDICARE ==
[~2020-04-11] VITALS: Ht 162.6 cm; Wt 70.0 kg
[2020-04-11 12:58] VITALS: BP 108/53
[2020-04-11] MEDS ORDERED: diphenhydrAMINE 25MG CAP PO ONE (13:00)
[2020-04-11] MEDS ORDERED: ACETAMINOPHEN TAB 650MG DOSE (2X325MG) PO ONE (13:00)
[2020-04-11] MEDS ORDERED: VEDOLIZUMAB 300 MG in NS 250 ML IV ONE (14:00)
[2020-04-11 14:10] VITALS: BP 102/54
== END 2020-04-11 14:10 | disposition home or self-care (01) ==
LOC: M INFU 12:43
PROVIDERS: ATTEND Internal Medicine Gastroenterology
DX: K51.90 Ulcerative colitis, unspecified, without complications (principal)
CPT/HCPCS: 96365; J3380

== ENCOUNTER 2020-05-23 13:42 | Outpatient (CLI) | payer MEDICARE ==
[~2020-05-23 13:42] MED LIST changes: -ASPI81TA85 PO; +ASPI81TA86 PO; +VEDOLIZUMAB 300MG VIAL (ENTYVIO) (J3380 PER 1MG) ONE
[2020-05-23] MEDS ORDERED: ACETAMINOPHEN TAB 650MG DOSE (2X325MG) As Ordered ONE (14:12)
[2020-05-23] MEDS ORDERED: diphenhydrAMINE 25MG CAP ONE (14:12)
[2020-05-23] MEDS ORDERED: ACETAMINOPHEN TAB 650MG DOSE (2X325MG) ONE (14:12)
[2020-05-23] MEDS ORDERED: diphenhydrAMINE 25MG CAP As Ordered ONE (14:12)
== END 2020-05-23 15:00 | disposition home or self-care (01) ==
LOC: M INFU 13:42
PROVIDERS: ATTEND Internal Medicine Gastroenterology
DX: K51.90 Ulcerative colitis, unspecified, without complications (principal)
CPT/HCPCS: 96365; J3380

== ENCOUNTER 2021-01-25 10:14 | Observation (INO) | payer MEDICARE ==
[~2021-01-25] VITALS: Ht 162.6 cm; Wt 61.5 kg
[~2021-01-25 10:14] MED LIST changes: -VEDOLIZUMAB 300MG VIAL (ENTYVIO) (J3380 PER 1MG) ONE
[2021-01-25] MEDS ORDERED: LISI20TA33 PO (10:30)
[2021-01-25 12:17] LABS: BASO % 0.6 % (0.0-1.0); EOS # 0.1 10^3/uL (0.0-0.5); EOS % 1.8 % (0.0-3.0); HEMATOCRIT 40.5 % (36.0-47.0); HEMOGLOBIN 12.7 g/dl (12.0-15.5); LYMPH # 1.3 10^3/uL (1.5-5.0); LYMPH % 20.1 % (24.0-44.0); MEAN CORPUSCULAR HGB CONC 31.4 g/dl (32.0-36.5); MEAN CORPUSCULAR VOLUME 89.2 fl (80.0-96.0); MONO # 0.5 10^3/uL (0.0-0.8); MONO % 7.2 % (2.0-8.0); NEUTROPHILS # 4.6 10^3/uL (1.5-8.5); PLATELET COUNT, AUTOMATED 365 10^3/uL (150-450); RED BLOOD COUNT 4.54 10^6/uL (4.00-5.40); WHITE BLOOD COUNT 6.6 10^3/uL (4.0-10.0)
--- NOTE | 2021-01-25 12:21 | REP ---
INDICATION: CHEST PAIN. COMPARISON: PA and lateral chest dated 10/12/2018. TECHNIQUE: Portable AP chest with the patient sitting. FINDINGS: The lung armstrong are clear. Cardiac size is normal. The coleman, mediastinum and skeletal structures are unremarkable. There are surgical clips in the right axilla, unchanged. IMPRESSION: Essentially negative PA and lateral chest No significant interval change. <Electronically signed by Carlos Hull > 01/25/21 [id number]
[2021-01-25 12:29] LABS: INR 0.96
[2021-01-25 12:30] LABS: PARTIAL THROMBOPLASTIN TIME 34.2 SECONDS (24.2-38.5)
[2021-01-25 12:38] LABS: HCG, SERUM QUALITATIVE NEGATIVE (NEGATIVE)
[2021-01-25 12:44] LABS: ALT/SGPT 13 U/L (12-78); BILIRUBIN,DIRECT 0.1 MG/DL (0.0-0.2); BILIRUBIN,TOTAL 0.4 MG/DL (0.2-1.0); FREE T4 0.97 NG/DL (0.76-1.46); LIPASE 134 U/L (73-393); NT-PRO BNP 1346 PG/ML (<450)
[2021-01-25] MEDS ORDERED: FUROSEMIDE 40MG/4ML VIAL (J1940) IV ONE (13:20)
--- NOTE | 2021-01-25 13:20 | REP ---
INDICATION: increased confusion. COMPARISON: None. TECHNIQUE: Axial CT images with multiplanar reformations. FINDINGS: No acute bleed or acute large vessel territorial infarct. Ventricles, cisterns and sulci are within normal limits. No mass effect or midline shift. No abnormal fluid collections. Paranasal sinuses and mastoid air cells are clear. IMPRESSION: No acute findings. Age-related volume loss. <Electronically signed by Mundo Mayer > 01/25/21 [id number]
--- NOTE | 2021-01-25 13:25 | ECGEPIP ---
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
--- NOTE | 2021-01-25 13:38 | REP ---
INDICATION: abd pain, Hx UC COMPARISON: 08/22/2014. TECHNIQUE: CT Scan of the abdomen and pelvis was performed without intravenous contrast. Sagittal and coronal reconstruction images performed. FINDINGS: Lung bases: Unremarkable. Liver: Grossly unremarkable. Gallbladder: Unremarkable. Spleen: Grossly unremarkable.. Adrenals: Normal. Pancreas: Grossly unremarkable.. Kidneys: No hydronephrosis or nephrolithiasis. Ureters demonstrate no dilatation or calculus. Small and large bowel: There is mild sigmoid diverticulosis. No bowel thickening or inflammation is seen. There is no free air or free fluid. Free fluid: None. Abdominal aorta: No aneurysm. Adenopathy: None. Appendix: Not inflamed. Osseous structures: Unremarkable. Pelvis: No mass. No bladder calculus seen. IMPRESSION: Negative non-contrast CT abdomen and pelvis. <Electronically signed by Carlos Campos > 01/25/21 [id number]
[2021-01-25 16:14] LABS: RSV AMPLIFICATION NEGATIVE (NEGATIVE)
[2021-01-25] MEDS ORDERED: ECOT81TA5 PO (17:42)
[2021-01-25] MEDS ORDERED: ACET-683 PO (17:42)
[2021-01-25] MEDS: ACETAMINOPHEN TAB 650MG DOSE (2X325MG) PO PRN (18:24)
[2021-01-25 19:17] LABS: CK-MB VALUE MASS 1.1 NG/ML (<3.6); CPK CREATINE PHOSPHOKINASE 35 U/L (26-192); MB/CK RELATIVE INDEX 3.14 (< OR =4); TROPONIN I < 0.02 NG/ML (< 0.10)
[2021-01-25 20:23] VITALS: BP 155/79
[2021-01-25] MEDS ORDERED: POTASSIUM CHLORIDE 10 MEQ SR TABLET PO ONE (22:40)
--- NOTE | 2021-01-25 22:42 | HPEPDOC ---
General Date of Admission 01/25/21 Date of Service: Jan 25, 2021 Chief Complaint The patient is a 86-year-old female admitted with a reason for visit of Chest Pain, Sob. Source: Patient, RN/MD History of Present Illness 86 year old female with PMH of cognitive impairment, UC, h/o CAD s/p stenting and other medical comorbidities lives alone complained to family this morning of chest discomfort and dyspnea since the last night. She also complained of irregular heart beat. She was feeling unwell all night and could not sleep. She also complained of headache and abdominal cramps and nausea but no vomiting. Family went to check on her and found that she has not taken her medications which come in blister packs for 3 days. She was brought to the ED for evaluation. In the ED on arrival she was noted to be in hypertensive urgency with BP of 200/120. She had a wet cough and her BNP was 1300. It was felt that she had CHF so was given a dose of lasix with 1 L urine output over the next few hours. Her CXR was negative. She had a CT abdomen and pelvis which was also negative for any acute events. On my interview patient is pleasant but very forgetful. She was looking to her daughter- in- law at bedside to help with all answers. She had to be prompted several times to explain her symptoms and she was forgetting what happened at night and why she came to the hospital and had to be prompted by her family. She is oriented x 2. To me she only complained of headache. She did not have any chest or abdominal complaints any more. She is being admitted for hypertensive urgency and evaluation for acute CHF. Home Medications Scheduled Aspirin (Ecotrin) 81 Mg Tablet.dr, 81 MG PO DAILY, (Reported) Lisinopril (Lisinopril) 20 Mg Tablet, 20 MG PO DAILY, (Reported) [Ezetim/Simva] 10-20 mg TAB, 1 TAB PO QHS, (Reported) Scheduled PRN Acetaminophen (Acetaminophen) 500 Mg Tablet, 1,000 MG PO BID PRN for PAIN, (Reported) Allergies Coded Allergies: No Known Allergies (Unverified , 08/01/17) Past Medical History Medical History CAD status post angioplasty complicated by dissection s/p stent placement 02/1991. Cardiac catheterization 12/11/2006 normal. Stress test 04/06/2016 normal Cognitive impairment PAD per [facility] 11/02/2012. Hyperlipidemia. Hypertension. Osteopenia. B/L Cataract extraction Glaucoma. Right breast cancer s/p lumpectomy and RT.released from oncology. Ulcerative colitis. Follows with Dr. Alston. Osteoarthritis (OA) degenerative joint disease (DJD). Mild chronic obstructive pulmonary disease (COPD) with spirometry 04/06/2015 showing an FVC of 76%, FEV-1 of 74%. Multiple skin cancers. Family History Father had hypertension, hyperlipidemia, of a heart attack in his 40s. Mom had breast cancer and of Alzheimer's. A brother had possible lung cancer at 66. Another brother heart disease, diabetes. Another brother hypertension, hyperlipidemia, prostate cancer. Two sisters have hypertension and hyperlipidemia. Social History * Smoker: former Smoker Alcohol: rarely A-FIB/CHADSVASC A-FIB History Current/History of A-Fib/PAF?: No Review of Systems Constitutional: Denies: Chills, Fever, Night Sweats ENT: Reports: Head Aches Skin: Denies: Rash, Lesions, Breakdown Pulmonary: Reports: Dyspnea Cardiovascular: Reports: Chest Pain, Palpitations Gastrointestinal: Reports: Nausea, Abdominal Pain; Denies: Vomiting, Diarrhea Physical Examination General Exam: Positive: Alert, Cooperative, No Acute Distress Eye Exam: Positive: PERRLA, Conjunctiva & lids normal, EOMI; Negative: Sclera icteric ENT Exam: Positive: Atraumatic, Mucous membr. moist/pink, Pharynx Normal Neck Exam: Positive: Supple, +2 carotid pulse wo bruit; Negative: JVD, thyromegaly Chest Exam: Positive: Clear to auscultation, Normal air movement Heart Exam: Positive: Rate Normal, Regular Rhythm, Normal S1, Normal S2, Murmurs (systolic murmur most prominant at the aortic acrea); Negative: Rubs Abdomen Exam: Positive: Normal bowel sounds, Soft; Negative: Tenderness, Hepatospenomegaly Extremity Exam: Positive: Normal pulses; Negative: Clubbing, Cyanosis, Edema Vital Signs Vital Signs Date Time Temp Pulse Resp B/P (MAP) Pulse Ox O2 Delivery O2 Flow Rate FiO2 01/25/21 12:00 18 01/25/21 11:54 66 98 01/25/21 10:14 97.1 Room Air Laboratory Data Labs 24H Laboratory Tests 2 01/25/21 11:57: Immature Granulocyte % (Auto) 0.3, Neutrophils (%) (Auto) 70.0H, Lymphocytes (%) (Auto) 20.1L, Monocytes (%) (Auto) 7.2, Eosinophils (%) (Auto) 1.8, Basophils (%) (Auto) 0.6, Neutrophils # (Auto) 4.6, Lymphocytes # (Auto) 1.3L, Monocytes # (Auto) 0.5, Eosinophils # (Auto) 0.1, Basophils # (Auto) 0.0, Nucleated Red Blood Cells % (auto) 0.0, Prothrombin Time 13.0, Prothromb Time International Ratio 0.96, Activated Partial Thromboplast Time 34.2, Total Bilirubin 0.4, Direct Bilirubin 0.1, Aspartate Amino Transf (AST/SGOT) 14, Alanine Aminotransferase (ALT/SGPT) 13, Alkaline Phosphatase 75, AK-Gft-O-Type Natriuretic Peptide 1346H, Total Protein 7.0, Albumin 4.0, Albumin/Globulin Ratio 1.3, Lipase 134, Thyroid Stimulating Hormone (TSH) 1.970, Free Thyroxine 0.97, Human Chorionic Gonadotropin, Qual NEGATIVE 01/25/21 12:00: POC Glucose (Misc Panel) 85, POC Sodium (Misc Panel) 140, POC Potassium (Misc Panel) 3.2L, POC Chloride (Misc Panel) 103, POC Total CO2 (Misc Panel) 25.0, POC Blood Urea Nitrogen (Misc Panel 15, POC Ionized Calcium (Misc Panel) 4.9, POC Creatinine (Misc Panel) 0.7, POC Hematocrit (Misc Panel) 40.0 01/25/21 12:01: POC Troponin I (Misc) 0.00 01/25/21 14:35: Coronavirus (COVID-19)(PCR) NEGATIVE, Influenza Type A (RT-PCR) NEGATIVE, Influenza Type B (RT-PCR) NEGATIVE, Respiratory Syncytial Virus (PCR) NEGATIVE CBC/BMP Laboratory Tests 01/25/21 11:57 Assessment/Plan 86 year old female with PMH of cognitive impairment, UC, h/o CAD s/p stenting and other medical comorbidities lives alone complained to family this morning of chest discomfort and dyspnea since the last night. She also complained of irregular heart beat. She was feeling unwell all night and could not sleep. She also complained of headache and abdominal cramps and nausea but no vomiting. Family went to check on her and found that she has not taken her medications which come in blister packs for 3 days. She was brought to the ED for evaluation. In the ED on arrival she was noted to be in hypertensive urgency with BP of 200/120. She had a wet cough and her BNP was 1300. It was felt that she had CHF so was given a dose of lasix with 1 L urine output over the next few hours. Her CXR was negative. She had a CT abdomen and pelvis which was also negative for any acute events. She is being admitted for hypertensive urgency and evaluation for acute CHF. Hypertensive urgency due to noncompliance with medication due to dementia better after lasix. will restart lisinopril at lower dose, continue lasix. Acute CHF this was likely precipitated by the hypertensive urgency improved after lasix will get echo. Cognitive impairment likely due to a combination of vascular and age related dementia. She lives alone but has been forgetful of her medications and forgetful about meals. She has lost 10 kgs in the past 1 year. family checks on her several times a day But i feel she needs either more supervision at home or a Assisted living like situation discussed this with daughter- in law and she is going to talk to PMD about referral for placement. HLD continue home meds. Plan / VTE VTE Prophylaxis Ordered?: Yes BUTCH RODRIGUES MD Jan 25, 2021 16:47
[2021-01-26] MEDS: ACETAMINOPHEN TAB 650MG DOSE (2X325MG) PO PRN (00:46)
[2021-01-26 06:00] VITALS: BP 156/78
[2021-01-26 07:35] LABS: BASO % 0.6 % (0.0-1.0); EOS # 0.1 10^3/uL (0.0-0.5); EOS % 1.9 % (0.0-3.0); HEMATOCRIT 39.3 % (36.0-47.0); HEMOGLOBIN 12.5 g/dl (12.0-15.5); LYMPH # 1.3 10^3/uL (1.5-5.0); LYMPH % 25.2 % (24.0-44.0); MEAN CORPUSCULAR HGB CONC 31.8 g/dl (32.0-36.5); MEAN CORPUSCULAR VOLUME 88.1 fl (80.0-96.0); MONO # 0.5 10^3/uL (0.0-0.8); MONO % 9.5 % (2.0-8.0); NEUTROPHILS # 3.2 10^3/uL (1.5-8.5); NEUTROPHILS % 62.6 % (36.0-66.0); PLATELET COUNT, AUTOMATED 346 10^3/uL (150-450); RED BLOOD COUNT 4.46 10^6/uL (4.00-5.40); WHITE BLOOD COUNT 5.2 10^3/uL (4.0-10.0)
[2021-01-26 08:04] LABS: BLOOD UREA NITROGEN 21 MG/DL (7-18); CARBON DIOXIDE LEVEL 25 MEQ/L (21-32); CHLORIDE LEVEL 106 MEQ/L (98-107); CREATININE FOR GFR 0.79 MG/DL (0.55-1.30); GLOMERULAR FILTRATION RATE > 60.0 (>32); GLUCOSE, FASTING 81 MG/DL (70-100); POTASSIUM SERUM 3.8 MEQ/L (3.5-5.1); SODIUM LEVEL 140 MEQ/L (136-145)
[2021-01-26 08:33] VITALS: BP 150/79
[2021-01-26] MEDS ORDERED: ENOXAPARIN 40MG/0.4ML SYRINGE (J1650 PER 10MG) SC SCH (09:00)
[2021-01-26] MEDS ORDERED: FUROSEMIDE 40MG/4ML VIAL (J1940) IV SCH (09:00)
[2021-01-26] MEDS ORDERED: ASPIRIN 81MG ENTERIC TABLET PO SCH (09:00)
--- NOTE | 2021-01-26 12:34 | IPNPDOC ---
Subjective Date Seen The patient was seen on 01/26/21. Subjective Chief Complaint/HPI Feeling well this morning, No issues overnight. No chest pain or sob , No events in telemetry. Objective Physical Examination General Exam: Positive: Alert, Cooperative, No Acute Distress Eye Exam: Positive: PERRLA, Conjunctiva & lids normal, EOMI; Negative: Sclera icteric ENT Exam: Positive: Atraumatic, Mucous membr. moist/pink, Pharynx Normal Neck Exam: Positive: Supple, +2 carotid pulse wo bruit; Negative: JVD, thyromegaly Chest Exam: Positive: Clear to auscultation, Normal air movement Heart Exam: Positive: Rate Normal, Regular Rhythm, Normal S1, Normal S2, Murmurs (systolic murmur most prominant at the aortic acrea); Negative: Rubs Abdomen Exam: Positive: Normal bowel sounds, Soft; Negative: Tenderness, Hepatospenomegaly Extremity Exam: Positive: Normal pulses; Negative: Clubbing, Cyanosis, Edema Assessment /Plan Assessment 86 year old female with PMH of cognitive impairment, UC, h/o CAD s/p stenting and other medical comorbidities lives alone complained to family this morning of chest discomfort and dyspnea since the last night. She also complained of irregular heart beat. She was feeling unwell all night and could not sleep. She also complained of headache and abdominal cramps and nausea but no vomiting. Family went to check on her and found that she has not taken her medications which come in blister packs for 3 days. She was brought to the ED for evaluation. In the ED on arrival she was noted to be in hypertensive urgency with BP of 200/120. She had a wet cough and her BNP was 1300. It was felt that she had CHF so was given a dose of lasix with 1 L urine output over the next few hours. Her CXR was negative. She had a CT abdomen and pelvis which was also negative for any acute events. She is being admitted for hypertensive urgency and evaluation for acute CHF. Hypertensive urgency due to noncompliance with medication due to dementia Now resolved will restart lisinopril at lower dose, continue lasix. Acute CHF this was likely precipitated by the hypertensive urgency improved after lasix Echo pending Cognitive impairment likely due to a combination of vascular and age related dementia. She lives alone but has been forgetful of her medications and forgetful about meals. She has lost 10 kgs in the past 1 year. family checks on her several times a day But i feel she needs either more supervision at home or a Assisted living like situation discussed this with daughter- in law and she is going to talk to PMD about referral for placement. HLD continue home meds. Plan/VTE VTE Prophylaxis Ordered?: Yes VS, I&O, 24H, Fishbone Vital Signs/I&O Vital Signs Date Time Temp Pulse Resp B/P (MAP) Pulse Ox O2 Delivery O2 Flow Rate FiO2 01/26/21 08:33 150/79 01/26/21 06:00 97.7 79 20 94 01/25/21 20:23 Room Air I&O- Last 24 Hours up to 6 AM 01/26/21 06:00 Intake Total 540 ml Output Total 250 ml Balance 290 ml Laboratory Data 24H LABS Laboratory Tests 2 01/25/21 14:35: Coronavirus (COVID-19)(PCR) NEGATIVE, Influenza Type A (RT-PCR) NEGATIVE, Inf luenza Type B (RT-PCR) NEGATIVE, Respiratory Syncytial Virus (PCR) NEGATIVE 01/25/21 18:36: Total Creatine Kinase 35, Creatine Kinase MB 1.1, Creatine Kinase MB Relative Index 3.14, Troponin I < 0.02 01/26/21 06:27: Immature Granulocyte % (Auto) 0.2, Neutrophils (%) (Auto) 62.6, Lymphocytes (%) (Auto) 25.2, Monocytes (%) (Auto) 9.5H, Eosinophils (%) (Auto) 1.9, Basophils (%) (Auto) 0.6, Neutrophils # (Auto) 3.2, Lymphocytes # (Auto) 1.3L, Monocytes # (Auto) 0.5, Eosinophils # (Auto) 0.1, Basophils # (Auto) 0.0, Nucleated Red Blood Cells % (auto) 0.0, Anion Gap 9, Glomerular Filtration Rate > 60.0, Calcium Level 9.0 CBC/BMP Laboratory Tests 01/26/21 06:27 BUTCH RODRIGUES MD Jan 26, 2021 12:34
[2021-01-26] MEDS ORDERED: FURO20TA2 PO (13:44)
[2021-01-26 14:00] VITALS: BP 110/65
[2021-01-27] MEDS ORDERED: EZET1TAB4 PO (02:58)
[2021-01-27] MEDS ORDERED: FURO20TA2 PO (02:58)
[2021-01-27] MEDS ORDERED: FUROSEMIDE 20 MG TAB PO SCH (09:00)
[2021-01-27] MEDS ORDERED: ELIQ5TAB PO (13:27)
--- NOTE | 2021-01-30 08:29 | ECHO ---
DATE OF PROCEDURE: 01/26/2021 Age: 86 Gender: Female Height: 64 inches Weight: 141 pounds Body surface area: 1.69 m2 PATIENT LOCATION: Inpatient [address] [place] [address], Room 4220. REFERRING PHYSICIAN: Bernie Livingston MD. INDICATION: Congestive heart failure (CHF). MEASUREMENTS: 2D Measurements: RV 2.8 cm LV 3.7 cm Septum 1.3 cm Posterior wall 1.3 cm Aortic Root 3.3 cm LA 4.0 cm LVEF 65% Doppler Measurements: AV 1.16 m/s LVOT 1.0 m/s LVOT diameter 2.0 cm MV-E 48, A 94, E/A ratio 0.5 Early mitral deceleration time 280 msec E prime medial 6.3, A prime medial 7.5, E prime lateral 5.9 Average E/E prime ratio 7.9/PCWP 11.7 mmHg PV 0.8 m/s Pulmonary artery acceleration time 111 msec PASP 34 mmHg IVC 1.4 cm COMMENTS: Normal sinus rhythm without interventricular conduction disturbance. Technically challenging study in light of the patients body habitus, but diagnostically useful information was still obtained. M-mode and two-dimensional echocardiography was performed with pulse, continuous wave, color flow, and tissue Doppler studies. Mild concentric left ventricular hypertrophy with normal wall motion. Mildly dilated left atrium with grade 1 LV diastolic dysfunction and currently normal estimated mean left atrial pressure. Normal right heart chamber sizes and motion with Doppler sign of mild pulmonary hypertension. Normal IVC size and collapse against an elevated central venous pressure at this time. Normal aortic diameters. Mild aortic valvular sclerosis with trace to very mild insufficiency. Moderate mitral annular calcification with slight thickening of the mitral leaflets, but adequate leaflet excursion and no posterior systolic buckling. Trace to very mild insufficiency (physiologic). Normal appearing and functioning tricuspid valve. No apparent intracardiac mass or pericardial effusion. MTDD
== END 2021-01-26 18:52 | disposition home or self-care (01) ==
LOC: M ED 10:14 → M ED INP 10:15 → ENRESERV 18:41 → M MSPAV 20:00
PROVIDERS: ADMIT Internal Medicine Nephrology; ATTEND Internal Medicine Nephrology
DX: I50.9 Heart failure, unspecified (principal); F03.90 Unspecified dementia, unspecified severity, without behavioral disturbance, psychotic disturbance, mood disturbance, and anxiety; I25.10 Atherosclerotic heart disease of native coronary artery without angina pectoris; Z98.61 Coronary angioplasty status; E78.49 Other hyperlipidemia; J44.9 Chronic obstructive pulmonary disease, unspecified; Z79.82 Long term (current) use of aspirin; Z79.899 Other long term (current) drug therapy; I16.0 Hypertensive urgency; I11.0 Hypertensive heart disease with heart failure; Z87.891 Personal history of nicotine dependence; Z91.14 Patient's other noncompliance with medication regimen; Z85.3 Personal history of malignant neoplasm of breast

== ENCOUNTER 2021-01-26 22:48 | Inpatient (IN) | payer MEDICARE ==
[~2021-01-26] VITALS: Ht 162.6 cm; Wt 63.0 kg
[~2021-01-26 22:48] MED LIST changes: +ACET-683 PO; +ECOT81TA5 PO; +FURO20TA2 PO; +LISI20TA33 PO
[2021-01-26 23:32] LABS: BASO % 0.5 % (0.0-1.0); EOS # 0.1 10^3/uL (0.0-0.5); EOS % 1.1 % (0.0-3.0); HEMATOCRIT 39.2 % (36.0-47.0); HEMOGLOBIN 12.8 g/dl (12.0-15.5); LYMPH # 1.5 10^3/uL (1.5-5.0); LYMPH % 17.4 % (24.0-44.0); MEAN CORPUSCULAR HEMOGLOBIN 28.6 pg (27.0-33.0); MEAN CORPUSCULAR HGB CONC 32.7 g/dl (32.0-36.5); MEAN CORPUSCULAR VOLUME 87.7 fl (80.0-96.0); MONO # 0.6 10^3/uL (0.0-0.8); MONO % 6.9 % (2.0-8.0); NEUTROPHILS # 6.3 10^3/uL (1.5-8.5); NEUTROPHILS % 73.9 % (36.0-66.0); PLATELET COUNT, AUTOMATED 338 10^3/uL (150-450); RED BLOOD COUNT 4.47 10^6/uL (4.00-5.40); WHITE BLOOD COUNT 8.5 10^3/uL (4.0-10.0)
[2021-01-26 23:55] LABS: INR 1.04; PROTHROMBIN TIME 13.8 SECONDS (12.5-14.3)
[2021-01-26 23:56] LABS: PARTIAL THROMBOPLASTIN TIME 33.5 SECONDS (24.2-38.5)
[2021-01-27 00:26] LABS: ALBUMIN 3.5 GM/DL (3.2-5.2); ALT/SGPT 13 U/L (12-78); BILIRUBIN,DIRECT < 0.1 MG/DL (0.0-0.2); BILIRUBIN,TOTAL 0.3 MG/DL (0.2-1.0); BLOOD UREA NITROGEN 31 MG/DL (7-18); CALCIUM LEVEL 9.1 MG/DL (8.8-10.2); CARBON DIOXIDE LEVEL 26 MEQ/L (21-32); CHLORIDE LEVEL 107 MEQ/L (98-107); CK-MB VALUE MASS 1.2 NG/ML (<3.6); CPK CREATINE PHOSPHOKINASE 93 U/L (26-192); CREATININE FOR GFR 1.15 MG/DL (0.55-1.30); FREE T4 0.97 NG/DL (0.76-1.46); GLOMERULAR FILTRATION RATE 47.9 (>32); GLUCOSE, FASTING 180 MG/DL (70-100); MB/CK RELATIVE INDEX 1.29 (< OR =4); NT-PRO BNP 343 PG/ML (<450); POTASSIUM SERUM 3.4 MEQ/L (3.5-5.1); SODIUM LEVEL 143 MEQ/L (136-145); TOTAL PROTEIN 6.6 GM/DL (6.4-8.2); TROPONIN I < 0.02 NG/ML (< 0.10)
[2021-01-27] MEDS: METOPROLOL 5 MG/5 ML VIAL IV SCH ×2 (01:00→07:48)
[2021-01-27 01:38] LABS: MAGNESIUM LEVEL 1.7 MG/DL (1.8-2.4)
[2021-01-27] MEDS ORDERED: MAG SULF 1GM/100ML (MAG RUN) 1 GM in IV 1 EA IV ONE (02:20)
--- NOTE | 2021-01-27 02:38 | REPVR ---
PROCEDURE INFORMATION: Exam: XR Chest Exam date and time: 01/26/21 (11:33pm) Age: 86 years old Clinical indication: Chest pain TECHNIQUE: Imaging protocol: XR of the chest Views: 2 views COMPARISON: Portable CXR of 01/25/21 (12:08pm) FINDINGS: Comparison is made with a portable CXR done the previous afternoon. COPD-type changes again noted. The lung armstrong are hyperinflated. Surgical clips again seen in the right axilla. Normal heart size. No significant congestion. No focal infiltrates. No pleural effusions. IMPRESSION: No acute findings. No focal infiltrates. No pleural effusions. COPD-type changes Electronically signed by: Varsha Bolaños On 01/27/2021 02:39:26 AM
[2021-01-27] MEDS ORDERED: MAALOX 30 ML SUSP *UDC PO PRN (02:40)
[2021-01-27] MEDS ORDERED: MOM 30ML SUSPENSION UDC PO PRN (02:40)
--- NOTE | 2021-01-27 02:57 | HPEPDOC ---
[facility] Medical History & Physical Date of Admission Jan 27, 2021 Date of Service: Jan 27, 2021 History and Physical CHIEF COMPLAINT: Syncope HISTORY OF PRESENT ILLNESS: 86-year-old female who was just discharged last evening from the hospital due to new onset of congestive heart failure improved with Lasix. Patient went home a few hours later she was taking a shower when she felt her legs were weak and she slowly came down onto her buttocks braced with the shower curtains she did not hit her head or lose consciousness. She felt her heart was racing and she was brought to the hospital. She was found to be in atrial fibrillation with rapid ventricular response rate in the 140s however prior to administration of any antiarrhythmics she spontaneously converted back to normal sinus rhythm her palpitations resolved and she was feeling much better. During this episode she was also found to be hypertensive but this also salt with the return back to sinus rhythm. Currently patient denies any chest pain or shortness of breath denies any lightheadedness denies palpitations. Says she's feeling much better back to her normal self. Patient will be admitted for observation with telemetry monitoring. PAST MEDICAL/SURGICAL HISTORY: From chart review CAD status post angioplasty complicated by dissection s/p stent placement 02/1991. Dementia PAD per [facility] 11/02/2012. Hyperlipidemia. Hypertension. Osteopenia. B/L Cataract extraction Glaucoma. Right breast cancer s/p lumpectomy and RT.released from oncology. Ulcerative colitis. Follows with Dr. Alston. Osteoarthritis (OA) degenerative joint disease (DJD). (COPD) with spirometry 04/06/2015 showing an FVC of 76%, FEV-1 of 74%. Multiple skin cancers. SOCIAL HISTORY: Drinks alcohol only socially Denies tobacco use currently but she is a former smoker Denies illicit drug use FAMILY HISTORY: Reviewed and none contributory to this admission ALLERGIES: Please see below. REVIEW OF SYSTEMS: 10 point review of systems complete all negative otherwise stated in HPI HOME MEDICATIONS: Please see below. PHYSICAL EXAMINATION: Constitutional: Awake and alert, in no apparent distress, elderly appearing frail female ENT: Sclera are clear. Respiratory: Lungs CTA bilaterally. No respiratory distress. Cardiovascular: Regular rate and rhythm there is a systolic murmur no JVD Gastrointestinal: Abdomen is soft, non distended, non tender, BS present. Musculoskeletal: Trace pitting lower extremity edema Neurologic: No focal neurological deficit. Mental Status: A&O x3, normal affect Skin: Not icteric LABORATORY DATA: See below. IMAGING: See chart MICROBIOLOGY: Please see below. ASSESSMENT/PLAN 86F patient was discharged yesterday and a syncopal episode in the shower fell was found to be in A. fib with RVR this converted back to sinus spontaneously and patient is currently asymptomatic. Patient is admitted for observation with telemetry monitoring may need Holter monitor at time of discharge and will need home safety evaluation. # Weakness and fall: Difficult to know which came first her fall might of been triggered by the A. fib with RVR which in itself might of caused the transient hypotension but also could be the a.fib causing her to be feel weak and fall. She is an older female quite frail and lives home alone. Would benefit from a home CT evaluation. Might need a chair in the shower. Probably needs more supervision at home or assisted living. At time of discharge yesterday family was going to discuss possible referral for placement. She still prefers to be able to go back home # Single episode of A. fib with RVR: This spontaneously converted back to sinus rhythm. I do been triggered by the fall. Admit to observation with telemetry monitoring. Consider Holter monitor time of discharge. Consider follow-up with cardiology. # History of CHF: Patient appears compensated. Recent echo results not back yet unspecified systolic or diastolic. # Hypertension: Given patient's recent history of hypotension likely triggered by the A. fib with RVR hold lisinopril for now and reassess in the morning # Hyperlipidemia: Continue statin # DVT prophylaxis: Santanox A Youf Hospitalist Vital Signs Vital Signs Date Time Temp Pulse Resp B/P (MAP) Pulse Ox O2 Delivery O2 Flow Rate FiO2 01/27/21 01:30 79 19 131/61 (84) 97 Room Air 01/26/21 23:05 96.8 Laboratory Data Labs 24H Laboratory Tests 2 01/26/21 23:17: Immature Granulocyte % (Auto) 0.2, Neutrophils (%) (Auto) 73.9H, Lymphocytes (%) (Auto) 17.4L, Monocytes (%) (Auto) 6.9, Eosinophils (%) (Auto) 1.1, Basophils (%) (Auto) 0.5, Neutrophils # (Auto) 6.3, Lymphocytes # (Auto) 1.5, Monocytes # (Auto) 0.6, Eosinophils # (Auto) 0.1, Basophils # (Auto) 0.0, Nucleated Red Blood Cells % (auto) 0.0, Prothrombin Time 13.8, Prothromb Time International Ratio 1.04, Activated Partial Thromboplast Time 33.5, Anion Gap 10, Glomerular Filtration Rate 47.9, Calcium Level 9.1, Magnesium Level 1.7L, Total Bilirubin 0.3, Direct Bilirubin < 0.1, Aspartate Amino Transf (AST/SGOT) 20, Alanine Aminotransferase (ALT/SGPT) 13, Alkaline Phosphatase 69, Total Creatine Kinase 93#, Creatine Kinase MB 1.2, Creatine Kinase MB Relative Index 1.29, Troponin I < 0.02, BS-Jim-P-Type Natriuretic Peptide 343, Total Protein 6.6, Albumin 3.5, Albumin/Globulin Ratio 1.1L, Thyroid Stimulating Hormone (TSH) 4.180H, Free Thyroxine 0.97 CBC/BMP Laboratory Tests 01/26/21 23:17 Microbiology Microbiology 01/27/21 Respiratory Virus Panel (PCR) ([facility]), Received Pending Home Medications Scheduled Aspirin (Ecotrin) 81 Mg Tablet.dr, 81 MG PO DAILY Ezetimibe/Simvastatin (Ezetimibe-Simvastatin 10-20 mg) 1 Each Tablet, 1 TAB PO QHS Lisinopril (Lisinopril) 20 Mg Tablet, 20 MG PO DAILY [Ezetim/Simva] 10-20 mg TAB, 1 TAB PO QHS Scheduled PRN Acetaminophen (Acetaminophen) 500 Mg Tablet, 1,000 MG PO BID PRN for PAIN Allergies Coded Allergies: No Known Allergies (Unverified , 01/26/21) A-FIB/CHADSVASC A-FIB History Current/History of A-Fib/PAF?: No PUSHPA JACOBSEN MD Jan 27, 2021 02:57
[2021-01-27] MEDS ORDERED: FURO20TA2 PO (02:58)
[2021-01-27] MEDS ORDERED: EZET1TAB4 PO (02:58)
[2021-01-27 04:30] VITALS: BP 144/78
[2021-01-27 06:52] LABS: HEMATOCRIT 36.8 % (36.0-47.0); HEMOGLOBIN 11.9 g/dl (12.0-15.5); MEAN CORPUSCULAR HEMOGLOBIN 28.2 pg (27.0-33.0); MEAN CORPUSCULAR HGB CONC 32.3 g/dl (32.0-36.5); MEAN CORPUSCULAR VOLUME 87.2 fl (80.0-96.0); PLATELET COUNT, AUTOMATED 341 10^3/uL (150-450); RED BLOOD COUNT 4.22 10^6/uL (4.00-5.40)
[2021-01-27 07:20] LABS: BLOOD UREA NITROGEN 30 MG/DL (7-18); CALCIUM LEVEL 9.5 MG/DL (8.8-10.2); CARBON DIOXIDE LEVEL 27 MEQ/L (21-32); CHLORIDE LEVEL 108 MEQ/L (98-107); CREATININE FOR GFR 0.82 MG/DL (0.55-1.30); GLOMERULAR FILTRATION RATE > 60.0 (>32); GLUCOSE, FASTING 108 MG/DL (70-100); POTASSIUM SERUM 3.7 MEQ/L (3.5-5.1); SODIUM LEVEL 141 MEQ/L (136-145)
[2021-01-27] MEDS: DOCUSATE SODIUM 100MG CAPSULE PO SCH ×2 (08:05→21:29)
[2021-01-27] MEDS: FUROSEMIDE 20 MG TAB PO SCH (08:05)
[2021-01-27] MEDS: ASPIRIN 325 MG TAB PO SCH (08:05)
--- NOTE | 2021-01-27 08:58 | ECGEPIP ---
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
[2021-01-27] MEDS ORDERED: ENOXAPARIN 30MG/0.3ML SYRINGE (J1650 PER 10MG) SC SCH (09:00)
[2021-01-27] MEDS ORDERED: ELIQ5TAB PO (13:27)
[2021-01-27] MEDS: APIXABAN 5 MG TAB (ELIQUIS) PO SCH ×2 (13:48→21:29)
[2021-01-27 14:00] VITALS: BP 117/74
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
--- NOTE | 2021-01-27 17:16 | REPVR ---
PROCEDURE INFORMATION: Exam: CT Head Without Contrast Exam date and time: 01/27/2021 4:56 PM Age: 86 years old Clinical indication: Injury or trauma; Fall; Blunt trauma (contusions or hematomas); Additional info: Recent fall, headache TECHNIQUE: Imaging protocol: Computed tomography of the head without contrast. Radiation optimization: All CT scans at this facility use at least one of these dose optimization techniques: automated exposure control; mA and/or kV adjustment per patient size (includes targeted exams where dose is matched to clinical indication); or iterative reconstruction. COMPARISON: CT Head without contrast 01/25/2021 1:08 PM FINDINGS: Brain: There is no acute cortical infarction, intracranial hemorrhage or mass. Punctate calcifications are again seen in the subarachnoid space which is a nonspecific finding but can be seen with prior cysticercosis among other etiologies. Cerebral ventricles: The ventricles appear mildly enlarged, but not out of proportion to the degree of parenchymal volume loss. Bones/joints: Unremarkable. No acute fracture. Paranasal sinuses: Visualized sinuses are unremarkable. No fluid levels. Mastoid air cells: Visualized mastoid air cells are well aerated. Soft tissues: Unremarkable. IMPRESSION: No acute intracranial findings. Stable in comparison to the 01/25/2021 CT. Electronically signed by: Elli Garcia On 01/27/2021 17:16:50 PM
--- NOTE | 2021-01-27 17:30 | REPVR ---
PROCEDURE INFORMATION: Exam: CT Lumbar Spine Without Contrast Exam date and time: 01/27/2021 4:56 PM Age: 86 years old Clinical indication: Injury or trauma; Fall; Blunt trauma (contusions or hematomas); Additional info: Recent fall, low back/hip pain TECHNIQUE: Imaging protocol: Computed tomography images of the lumbar spine without contrast. Radiation optimization: All CT scans at this facility use at least one of these dose optimization techniques: automated exposure control; mA and/or kV adjustment per patient size (includes targeted exams where dose is matched to clinical indication); or iterative reconstruction. COMPARISON: No relevant prior studies available. FINDINGS: Vertebrae: No wedge compression fracture seen in the lumbar spine. There is mild cupping the vertebral body endplates from the lower thoracic through the lumbar levels which is likely due to osteopenia. There is diffuse degenerative facet arthropathy. Near normal alignment. L1-L2: No significant spinal canal stenosis or neural foraminal narrowing. L2-L3: No significant spinal canal stenosis or neural foraminal narrowing. L3-L4: No significant spinal canal stenosis or neural foraminal narrowing. L4-L5: Minimal anterior spondylolisthesis of L4 on L5 due to mild subluxation of the degenerated facet joints. This in combination with a mildly bulging annulus results in moderate spinal canal stenosis and narrowing of the right lateral recess which may affect the exiting right L5 nerve root. The left neural foramen and to a lesser degree the right are narrowed by the bulging annulus. L5-S1: No significant spinal canal stenosis or neural foraminal narrowing. Sacrum/coccyx: There is degeneration of both sacroiliac joints. Reproductive: The left adrenal gland is prominent. Vasculature: There is extensive atherosclerotic calcification in a nonaneurysmal abdominal aorta and branches. Soft tissues: Unremarkable. IMPRESSION: No acute fracture in the lumbar spine. There may be compression of the exiting right L5 nerve root at the L4-L5 level due to spinal canal stenosis. Electronically signed by: Elli Garcia On 01/27/2021 17:30:27 PM
--- NOTE | 2021-01-27 17:40 | REPVR ---
PROCEDURE INFORMATION: Exam: CT Pelvis Without Contrast; Skeletal Exam date and time: 01/27/2021 4:56 PM Age: 86 years old Clinical indication: Injury or trauma; Fall; Blunt trauma (contusions or hematomas); Does not apply; Pelvic region; Additional info: Recent fall, low back/hip pain TECHNIQUE: Imaging protocol: Computed tomography images of the pelvis without contrast. Exam focused on the skeletal structures. Radiation optimization: All CT scans at this facility use at least one of these dose optimization techniques: automated exposure control; mA and/or kV adjustment per patient size (includes targeted exams where dose is matched to clinical indication); or iterative reconstruction. COMPARISON: CT ABD PELVIS W/O CONTRAST 01/25/2021 1:10 PM FINDINGS: Stomach and bowel: Diverticulosis in the sigmoid colon without evidence of diverticulitis. Vasculature: There is extensive atherosclerosis. Bones/joints: No hip fracture. No pelvic fracture. Soft tissues: There is no body wall hematoma. IMPRESSION: No acute fracture is identified in the pelvis. Electronically signed by: Elli Garcia On 01/27/2021 17:40:39 PM
[2021-01-27] MEDS: ACETAMINOPHEN TAB 650MG DOSE (2X325MG) PO PRN (18:40)
--- NOTE | 2021-01-27 20:55 | ECGEPIP ---
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
[2021-01-27] MEDS: SIMVASTATIN 20 MG TAB PO SCH (21:29)
[2021-01-27] MEDS: METOPROLOL TART 12.5 MG PER 1/2 TAB PO SCH (21:29)
[2021-01-27 22:00] VITALS: BP 120/73
[2021-01-28 06:00] VITALS: BP 146/64
[2021-01-28 06:27] LABS: HEMATOCRIT 36.1 % (36.0-47.0); HEMOGLOBIN 11.5 g/dl (12.0-15.5); MEAN CORPUSCULAR HEMOGLOBIN 28.5 pg (27.0-33.0); MEAN CORPUSCULAR HGB CONC 31.9 g/dl (32.0-36.5); MEAN CORPUSCULAR VOLUME 89.4 fl (80.0-96.0); PLATELET COUNT, AUTOMATED 322 10^3/uL (150-450); RED BLOOD COUNT 4.04 10^6/uL (4.00-5.40); WHITE BLOOD COUNT 4.9 10^3/uL (4.0-10.0)
[2021-01-28 06:59] LABS: BLOOD UREA NITROGEN 33 MG/DL (7-18); CALCIUM LEVEL 8.8 MG/DL (8.8-10.2); CARBON DIOXIDE LEVEL 27 MEQ/L (21-32); CHLORIDE LEVEL 109 MEQ/L (98-107); CREATININE FOR GFR 0.81 MG/DL (0.55-1.30); GLOMERULAR FILTRATION RATE > 60.0 (>32); GLUCOSE, FASTING 92 MG/DL (70-100); POTASSIUM SERUM 3.5 MEQ/L (3.5-5.1); SODIUM LEVEL 142 MEQ/L (136-145)
[2021-01-28] MEDS ORDERED: POTASSIUM CHLORIDE 10 MEQ SR TABLET PO ONE (07:45)
[2021-01-28] MEDS: FUROSEMIDE 20 MG TAB PO SCH (08:49)
[2021-01-28] MEDS: APIXABAN 5 MG TAB (ELIQUIS) PO SCH ×2 (08:49→20:04)
[2021-01-28] MEDS: DOCUSATE SODIUM 100MG CAPSULE PO SCH ×2 (08:49→20:04)
[2021-01-28] MEDS: METOPROLOL TART 12.5 MG PER 1/2 TAB PO SCH (08:49)
[2021-01-28] MEDS: ASPIRIN 325 MG TAB PO SCH (08:49)
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
[2021-01-28 14:00] VITALS: BP 135/67
[2021-01-28] MEDS: SIMVASTATIN 20 MG TAB PO SCH (20:04)
[2021-01-28] MEDS: ACETAMINOPHEN TAB 650MG DOSE (2X325MG) PO PRN (20:05)
[2021-01-28 22:00] VITALS: BP 133/68
[2021-01-29 05:48] LABS: HEMATOCRIT 34.5 % (36.0-47.0); HEMOGLOBIN 10.8 g/dl (12.0-15.5); MEAN CORPUSCULAR HEMOGLOBIN 28.1 pg (27.0-33.0); MEAN CORPUSCULAR HGB CONC 31.3 g/dl (32.0-36.5); MEAN CORPUSCULAR VOLUME 89.8 fl (80.0-96.0); PLATELET COUNT, AUTOMATED 269 10^3/uL (150-450); RED BLOOD COUNT 3.84 10^6/uL (4.00-5.40); WHITE BLOOD COUNT 4.3 10^3/uL (4.0-10.0)
[2021-01-29 06:00] VITALS: BP 129/59
[2021-01-29 06:07] LABS: BLOOD UREA NITROGEN 26 MG/DL (7-18); CALCIUM LEVEL 8.6 MG/DL (8.8-10.2); CARBON DIOXIDE LEVEL 26 MEQ/L (21-32); CHLORIDE LEVEL 112 MEQ/L (98-107); CREATININE FOR GFR 0.87 MG/DL (0.55-1.30); GLOMERULAR FILTRATION RATE > 60.0 (>32); GLUCOSE, FASTING 95 MG/DL (70-100); SODIUM LEVEL 143 MEQ/L (136-145)
[2021-01-29] MEDS: DOCUSATE SODIUM 100MG CAPSULE PO SCH ×2 (09:54→22:23)
[2021-01-29] MEDS: FUROSEMIDE 20 MG TAB PO SCH (09:54)
[2021-01-29] MEDS: APIXABAN 5 MG TAB (ELIQUIS) PO SCH ×2 (09:55→22:23)
[2021-01-29] MEDS: ASPIRIN 325 MG TAB PO SCH (09:55)
[2021-01-29 14:00] VITALS: BP 113/61
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
[2021-01-29 22:00] VITALS: BP 122/64
[2021-01-29] MEDS: SIMVASTATIN 20 MG TAB PO SCH (22:23)
[2021-01-30 06:00] VITALS: BP 122/59
[2021-01-30 06:33] LABS: HEMOGLOBIN 11.6 g/dl (12.0-15.5); MEAN CORPUSCULAR HEMOGLOBIN 27.8 pg (27.0-33.0); MEAN CORPUSCULAR HGB CONC 31.4 g/dl (32.0-36.5); MEAN CORPUSCULAR VOLUME 88.7 fl (80.0-96.0); PLATELET COUNT, AUTOMATED 290 10^3/uL (150-450); RED BLOOD COUNT 4.17 10^6/uL (4.00-5.40); WHITE BLOOD COUNT 4.6 10^3/uL (4.0-10.0)
[2021-01-30 07:03] LABS: BLOOD UREA NITROGEN 20 MG/DL (7-18); CALCIUM LEVEL 8.7 MG/DL (8.8-10.2); CARBON DIOXIDE LEVEL 26 MEQ/L (21-32); CHLORIDE LEVEL 109 MEQ/L (98-107); CREATININE FOR GFR 0.72 MG/DL (0.55-1.30); GLOMERULAR FILTRATION RATE > 60.0 (>32); GLUCOSE, FASTING 91 MG/DL (70-100); POTASSIUM SERUM 3.5 MEQ/L (3.5-5.1); SODIUM LEVEL 142 MEQ/L (136-145)
[2021-01-30] MEDS ORDERED: ASPIRIN 81 MG CHEW TABLET PO SCH (09:42)
[2021-01-30] MEDS: FUROSEMIDE 20 MG TAB PO SCH (10:07)
[2021-01-30] MEDS: DOCUSATE SODIUM 100MG CAPSULE PO SCH ×2 (10:07→20:05)
[2021-01-30] MEDS: ASPIRIN 81 MG CHEW TABLET PO SCH (10:07)
[2021-01-30] MEDS: APIXABAN 5 MG TAB (ELIQUIS) PO SCH ×2 (10:07→20:05)
[2021-01-30] MEDS: MIRALAX *UNIT DOSE* 17GM PACKET PO SCH (10:08)
[2021-01-30 14:00] VITALS: BP 133/69
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
[2021-01-30] MEDS: SIMVASTATIN 20 MG TAB PO SCH (20:05)
[2021-01-30 22:00] VITALS: BP 126/70
[2021-01-31 06:00] VITALS: BP 120/68
[2021-01-31 06:51] LABS: HEMATOCRIT 36.5 % (36.0-47.0); HEMOGLOBIN 11.8 g/dl (12.0-15.5); MEAN CORPUSCULAR HEMOGLOBIN 28.8 pg (27.0-33.0); MEAN CORPUSCULAR HGB CONC 32.3 g/dl (32.0-36.5); PLATELET COUNT, AUTOMATED 288 10^3/uL (150-450); WHITE BLOOD COUNT 4.7 10^3/uL (4.0-10.0)
[2021-01-31 07:16] LABS: BLOOD UREA NITROGEN 20 MG/DL (7-18); CALCIUM LEVEL 9.1 MG/DL (8.8-10.2); CARBON DIOXIDE LEVEL 26 MEQ/L (21-32); CHLORIDE LEVEL 108 MEQ/L (98-107); CREATININE FOR GFR 0.79 MG/DL (0.55-1.30); GLOMERULAR FILTRATION RATE > 60.0 (>32); GLUCOSE, FASTING 97 MG/DL (70-100); POTASSIUM SERUM 3.4 MEQ/L (3.5-5.1); SODIUM LEVEL 142 MEQ/L (136-145)
[2021-01-31] MEDS: DOCUSATE SODIUM 100MG CAPSULE PO SCH (08:02)
[2021-01-31] MEDS: ASPIRIN 81 MG CHEW TABLET PO SCH (08:02)
[2021-01-31] MEDS: FUROSEMIDE 20 MG TAB PO SCH (08:02)
[2021-01-31] MEDS: MIRALAX *UNIT DOSE* 17GM PACKET PO SCH ×2 (08:02→21:17)
[2021-01-31] MEDS: APIXABAN 5 MG TAB (ELIQUIS) PO SCH ×2 (08:02→21:17)
[2021-01-31] MEDS ORDERED: POTASSIUM CHLORIDE 10 MEQ SR TABLET PO ONE ×2 (08:05→13:30)
[2021-01-31] MEDS: OMEPRAZOLE 20 MG CAP PO SCH (08:14)
[2021-01-31 14:00] VITALS: BP 155/63
--- NOTE | 2021-01-31 16:34 | IPNPDOC ---
Date Seen The patient was seen on 01/31/21. Progress Note addendum to dictated progress note: chronic diastolic CHF echo 01/26/21: EF65% and grade 1 diastolic dysfunction. VS, I&O, 24H, Fishbone Vital Signs/I&O Vital Signs Date Time Temp Pulse Resp B/P (MAP) Pulse Ox O2 Delivery O2 Flow Rate FiO2 01/31/21 14:00 97.5 67 18 155/63 (93) 99 Room Air I&O- Last 24 Hours up to 6 AM 01/31/21 06:00 Intake Total 1570 ml Output Total 1000 ml Balance 570 ml Laboratory Data 24H LABS Laboratory Tests 2 01/31/21 06:36: Nucleated Red Blood Cells % (auto) 0.0, Anion Gap 8, Glomerular Filtration Rate > 60.0, Calcium Level 9.1 CBC/BMP Laboratory Tests 01/31/21 06:36 Microbiology Microbiology 01/27/21 Respiratory Virus Panel (PCR) ([facility]) - Final, Complete MAEGAN GROSS MD Jan 31, 2021 16:34
[2021-01-31] MEDS ORDERED: FLEET ENEMA PR PRN (17:45)
[2021-01-31] MEDS ORDERED: MAGNESIUM CITRATE 300 ML BTL PO ONE (17:45)
--- NOTE | 2021-01-31 19:44 | IPN ---
PROGRESS NOTE DATE: 01/31/2021 SUBJECTIVE: The patient denies any chest pain, pressure, tightness, palpitations, lightheadedness, or dizziness. She complains of constipation and has not had a bowel movement since she has been admitted. OBJECTIVE: Vital signs: Temperature 97, pulse 71, respiratory rate 18, blood pressure 120/68, 96% on room air. Generally the patient is awake, alert and oriented times three, speaking appropriately, no conversational dyspnea. HEENT: No JVD, thyromegaly, or cervical lymphadenopathy. Dry mucous membranes. Lungs are clear to auscultation, no wheezing or rales. Heart: S1, S2. Irregularly irregular. Abdomen is soft, nontender, nondistended. Positive bowel sounds. Extremities: No cyanosis, clubbing. Positive pitting edema. LABORATORY DATA: White count 4.7, hemoglobin 11, hematocrit 36, platelet count 288. Sodium 142, potassium 3.4, chloride 108, bicarb 26, BUN 20, creatinine 0.79, glucose of 97. ASSESSMENT AND PLAN: An 86-year-old female admitted on 01/27/2021 with atrial fibrillation with RVR and complaints of syncope with a history of CAD, angioplasty complicated by dissection status post stent in 1990, PAD, LAWRENCE October 2012, dementia, hypertension, hyperlipidemia, osteopenia, glaucoma, right breast cancer with lumpectomy and radiation, ulcerative colitis. Follows with Dr. Alston. Osteoarthritis, degenerative joint disease, COPD, FEV1 of 74%, and skin cancer. Had been rate controlled and currently on anticoagulation. CURRENT ISSUES ARE FOLLOWS: 1. Weakness, fall and syncope secondary to possible transient orthostasis due to atrial fibrillation with RVR, resolved. 2. Atrial fibrillation with RVR. Currently on Eliquis renally dosed, rate controlled. 3. History of CHF, compensated. 4. Hypertension, stable, holding antihypertensive for systolic pressure less than 120. 5. Hyperlipidemia on chronic statin. 6. Disposition: The patient will be changed to ALC status. BFS consulted for placement.
[2021-01-31] MEDS: SENOKOT S TAB PO SCH (21:16)
[2021-01-31] MEDS: SIMVASTATIN 20 MG TAB PO SCH (21:17)
[2021-01-31 22:00] VITALS: BP 119/74
[2021-02-01 06:00] VITALS: BP 137/60
[2021-02-01] MEDS: SENOKOT S TAB PO SCH (08:51)
[2021-02-01] MEDS: ASPIRIN 81 MG CHEW TABLET PO SCH (08:51)
[2021-02-01] MEDS: MIRALAX *UNIT DOSE* 17GM PACKET PO SCH (08:51)
[2021-02-01] MEDS: APIXABAN 5 MG TAB (ELIQUIS) PO SCH (08:51)
[2021-02-01] MEDS: FUROSEMIDE 20 MG TAB PO SCH (08:51)
[2021-02-01] MEDS: OMEPRAZOLE 20 MG CAP PO SCH (08:51)
[2021-02-01 08:52] VITALS: BP 126/66
[2021-02-01] MEDS ORDERED: OMEP-218 PO (10:21)
[2021-02-01] MEDS ORDERED: SENN-52 PO (10:21)
[2021-02-01] MEDS ORDERED: MIRA1POW3 PO (10:21)
--- NOTE | 2021-02-01 10:47 | DS.PDOC ---
Discharge Summary General Date of Admission Jan 27, 2021 at 14:55 Date of Discharge 02/01/21 Discharge Summary PLS HAVE [employer] CALL HYPERTYPE AT [phone] GROSS'S DISCHARGE NOTE JOB #[id number] Vital Signs/I&Os Vital Signs Date Time Temp Pulse Resp B/P (MAP) Pulse Ox O2 Delivery O2 Flow Rate FiO2 02/01/21 08:52 126/66 02/01/21 06:00 98.0 79 18 94 01/31/21 14:00 Room Air I&O- Last 24 Hours up to 6 AM 02/01/21 06:00 Intake Total 1720 ml Output Total 450 ml Balance 1270 ml Laboratory Data Labs 24H Laboratory Tests 2 02/01/21 10:33: Microbiology Microbiology 01/27/21 Respiratory Virus Panel (PCR) ([facility]) - Final, Complete Discharge Medications Scheduled Apixaban (Eliquis) 5 Mg Tablet, 5 MG PO BID Aspirin (Ecotrin) 81 Mg Tablet.dr, 81 MG PO DAILY, (Reported) Ezetimibe/Simvastatin (Ezetimibe-Simvastatin 10-20 mg) 1 Each Tablet, 1 TAB PO QHS, (Reported) Furosemide (Furosemide) 20 Mg Tablet, 20 MG PO DAILY, (Reported) Lisinopril (Lisinopril) 20 Mg Tablet, 20 MG PO DAILY, (Reported) Omeprazole (Omeprazole) 20 Mg Capsule.dr, 20 MG PO DAILY Polyethylene Glycol 3350 (Miralax) 17 Gm Powd.pack, 1 PKT PO BID Sennosides/Docusate Sodium (Senna Plus Tablet) 1 Each Tablet, 2 TAB PO BID Scheduled PRN Acetaminophen (Acetaminophen) 500 Mg Tablet, 1,000 MG PO BID PRN for PAIN, (Reported) Allergies Coded Allergies: No Known Allergies (Unverified , 01/26/21) MAEGAN GROSS MD Feb 01, 2021 10:47
--- NOTE | 2021-02-01 13:31 | DSES ---
DISCHARGE SUMMARY DATE OF ADMISSION: 01/27/2021 DATE OF DISCHARGE: 02/01/2021 PRIMARY DISCHARGE DIAGNOSES: 1. Syncope, possible transient orthostasis due to atrial fibrillation with rapid ventricular response. 2. Generalized weakness. 3. Fall status post syncope. 4. Atrial fibrillation with rapid ventricular response. 5. Diastolic congestive heart failure, compensated. 6. Hypertension. 7. Hyperlipidemia. 8. Chronic constipation. 9. History of irritable bowel syndrome. 10. Degenerative joint disease. 11. History of chronic obstructive pulmonary disease (COPD), FEV1 74%. 12. Degenerative disc disease. 13. History of coronary artery disease (CAD) angioplasty complicated by dissection status post coronary stent in 1990. 14. Peripheral arterial disease with LAWRENCE October 2012. 15. Chronic dementia. 16. Osteopenia. 17. History of right breast cancer with lumpectomy and radiation. 18. History of ulcerative colitis. 19. History of glaucoma. DISCHARGE MEDICATIONS: - Eliquis 5 mg twice a day - Prilosec 20 mg daily - MiraLax one packet twice a day - Senokot two tablets twice day - acetaminophen 1 gram twice a day as needed - aspirin 81 mg daily - ezetimibe/simvastatin 10/20 one tablet at bedtime - Lasix 20 mg daily - lisinopril 20 mg daily DISCHARGE INSTRUCTIONS: Follow up with primary care physician within five days of hospital discharge. HOSPITAL COURSE: This is an 86-year-old DO NOT RESUSCITATE (DNR)/DO NOT INTUBATE (DNI) female admitted on 01/27/2021 with complaints of syncope. Patient was just discharged the day before with new onset congestive heart failure (CHF), improved with Lasix. This was a diastolic dysfunction. A few hours later, while taking a shower, patient's lower extremities felt weak and she slowly came down on her buttocks bracing the shower curtains and had no head trauma or nauseousness. She complained of palpitations. In the emergency room (ER) she was found to have atrial fibrillation with rapid ventricular response at 140. Patient was given beta blockade with result of rate control to 67-79; however, she became hypotensive and did not require any rate control medication since. She was kept on telemetry and converted to regular rhythm. She was kept on aspirin 81 mg daily and started on Eliquis 5 mg twice a day. She complained of constipation and received a bowel regimen, had a bowel movement. Due to family unable to care for her, she is now transferred to [facility] for long-term placement. PHYSICAL EXAMINATION ON DISCHARGE: Temperature 98, pulse 79, respiratory rate 18, blood pressure 137/60, 94% on room air. GENERAL: Awake, alert, oriented. HEENT: Face is symmetric. Tongue is midline. Dry mucous membranes. No jugular venous distention (JVD), thyromegaly or cervical lymphadenopathy. LUNGS: Clear to auscultation. No wheezing, rales or rhonchi. HEART: S1, S2. Sinus rhythm. ABDOMEN: Soft, nontender, nondistended. EXTREMITIES: No pitting edema. LABORATORY DATA: White count 4.7, hemoglobin 11, hematocrit 36, platelet count 288. Sodium 142, potassium 3.4, chloride 108, bicarbonate 26, BUN 20 creatinine 0.79, glucose 97. IMAGING STUDIES: Please see below. TIME SPENT ON DISCHARGE: 30 minutes. MTDD
== END 2021-02-01 13:09 | DRG 309 ==
LOC: M ED 22:48 → M ED INP 22:49 → ENRESERV 01-27 03:41 → M MSPAV 01-27 04:30 → INTOOBSV 01-27 14:55 → OBSVTOIN 01-27 14:55
PROVIDERS: ADMIT Family Medicine; ATTEND General Practice
DX: I48.91 Unspecified atrial fibrillation (principal); I50.32 Chronic diastolic (congestive) heart failure; R53.1 Weakness; I11.0 Hypertensive heart disease with heart failure; F03.90 Unspecified dementia, unspecified severity, without behavioral disturbance, psychotic disturbance, mood disturbance, and anxiety; E78.5 Hyperlipidemia, unspecified; K59.00 Constipation, unspecified; J44.9 Chronic obstructive pulmonary disease, unspecified; I25.10 Atherosclerotic heart disease of native coronary artery without angina pectoris; Z95.2 Presence of prosthetic heart valve; I73.9 Peripheral vascular disease, unspecified; Z85.3 Personal history of malignant neoplasm of breast; Z92.3 Personal history of irradiation; Z79.899 Other long term (current) drug therapy; Z79.82 Long term (current) use of aspirin; Z66 Do not resuscitate; Z98.41 Cataract extraction status, right eye; Z98.42 Cataract extraction status, left eye; H40.9 Unspecified glaucoma; M19.90 Unspecified osteoarthritis, unspecified site; Z85.828 Personal history of other malignant neoplasm of skin

== ENCOUNTER → 2021-02-02 | Outpatient (REF) | payer MEDICARE ==
[~2021-02-02] MED LIST changes: +ELIQ5TAB PO; +EZET1TAB4 PO; +MIRA1POW3 PO; +OMEP-218 PO; +SENN-52 PO
[2021-02-02 09:33] LABS: HEMOGLOBIN 11.8 g/dl (12.0-15.5); MEAN CORPUSCULAR HEMOGLOBIN 28.6 pg (27.0-33.0); MEAN CORPUSCULAR HGB CONC 31.9 g/dl (32.0-36.5); MEAN CORPUSCULAR VOLUME 89.6 fl (80.0-96.0); PLATELET COUNT, AUTOMATED 332 10^3/uL (150-450); RED BLOOD COUNT 4.13 10^6/uL (4.00-5.40); WHITE BLOOD COUNT 4.9 10^3/uL (4.0-10.0)
[2021-02-02 10:15] LABS: BLOOD UREA NITROGEN 24 MG/DL (7-18); CALCIUM LEVEL 9.6 MG/DL (8.8-10.2); CARBON DIOXIDE LEVEL 28 MEQ/L (21-32); CHLORIDE LEVEL 106 MEQ/L (98-107); CREATININE FOR GFR 0.88 MG/DL (0.55-1.30); GLOMERULAR FILTRATION RATE > 60.0 (>32); GLUCOSE, FASTING 120 MG/DL (70-100); MAGNESIUM LEVEL 2.3 MG/DL (1.8-2.4); POTASSIUM SERUM 3.4 MEQ/L (3.5-5.1); SODIUM LEVEL 140 MEQ/L (136-145)
== END ==
LOC: SKLAB3 07:00
DX: I50.9 Heart failure, unspecified (principal)

== ENCOUNTER → 2021-02-09 | Outpatient (REF) | payer MEDICARE ==
[~2021-02-09] MED LIST changes: -EZET1TAB4 PO; +EZET1TAB96 PO
[2021-02-09 10:31] LABS: HEMATOCRIT 36.5 % (36.0-47.0); HEMOGLOBIN 11.5 g/dl (12.0-15.5); MEAN CORPUSCULAR HEMOGLOBIN 28.3 pg (27.0-33.0); MEAN CORPUSCULAR HGB CONC 31.5 g/dl (32.0-36.5); MEAN CORPUSCULAR VOLUME 89.7 fl (80.0-96.0); PLATELET COUNT, AUTOMATED 330 10^3/uL (150-450); RED BLOOD COUNT 4.07 10^6/uL (4.00-5.40)
[2021-02-09 10:58] LABS: BLOOD UREA NITROGEN 20 MG/DL (7-18); CALCIUM LEVEL 9.1 MG/DL (8.8-10.2); CARBON DIOXIDE LEVEL 27 MEQ/L (21-32); CHLORIDE LEVEL 108 MEQ/L (98-107); CREATININE FOR GFR 0.85 MG/DL (0.55-1.30); GLOMERULAR FILTRATION RATE > 60.0 (>32); GLUCOSE, FASTING 86 MG/DL (70-100); POTASSIUM SERUM 3.6 MEQ/L (3.5-5.1); SODIUM LEVEL 142 MEQ/L (136-145)
== END ==
LOC: SKLAB3 02-08 08:00
DX: I50.9 Heart failure, unspecified (principal)

== ENCOUNTER → 2021-02-23 | Outpatient (REF) | payer MEDICARE ==
[2021-02-23 09:36] LABS: HEMATOCRIT 37.2 % (36.0-47.0); HEMOGLOBIN 11.8 g/dl (12.0-15.5); MEAN CORPUSCULAR HEMOGLOBIN 28.1 pg (27.0-33.0); MEAN CORPUSCULAR HGB CONC 31.7 g/dl (32.0-36.5); MEAN CORPUSCULAR VOLUME 88.6 fl (80.0-96.0); PLATELET COUNT, AUTOMATED 287 10^3/uL (150-450); WHITE BLOOD COUNT 5.8 10^3/uL (4.0-10.0)
== END ==
LOC: SKLAB3 10:40
DX: Z79.01 Long term (current) use of anticoagulants (principal)

== ENCOUNTER → 2021-03-02 | Outpatient (REF) | payer MEDICARE ==
[2021-03-02 09:06] LABS: FREE T4 0.85 NG/DL (0.76-1.46); THYROID STIMULATING HORMONE 2.73 uIU/ML (0.358-3.740)
== END ==
LOC: SKLAB3 03-01 14:36
DX: E07.9 Disorder of thyroid, unspecified (principal)

== ENCOUNTER → 2021-04-04 | Outpatient (REF) | payer MEDICARE, SELFPAY ==
[2021-04-04 08:37] LABS: CHOLESTEROL RISK RATIO 2.037 (<5)
== END ==
LOC: SKLAB3 07:00
DX: E78.5 Hyperlipidemia, unspecified (principal)

== ENCOUNTER → 2021-06-06 | Outpatient (REF) | payer MEDICARE, SELFPAY ==
[2021-06-06 11:01] LABS: CALCIUM LEVEL 9.2 MG/DL (8.8-10.2); PHOSPHORUS LEVEL 3.8 MG/DL (2.5-4.9)
[2021-06-06 11:11] LABS: PTH INTACT 50.4 PG/ML (18.5-88.0); TOTAL 25(OH) VITAMIN D 31.4 NG/ML (30.0-100.0)
== END ==
LOC: SKLAB3 07:00
PROVIDERS: ATTEND Neuromusculoskeletal Medicine & OMM
DX: N18.9 Chronic kidney disease, unspecified (principal); Z79.899 Other long term (current) drug therapy

== ENCOUNTER → 2021-08-08 | Outpatient (REF) | payer MEDICARE ==
[~2021-08-08] MED LIST changes: -KLOR20TA42 PO; +POTA-141 PO
[2021-08-08 11:09] LABS: ALBUMIN 3.7 GM/DL (3.2-5.2); ALT/SGPT 17 U/L (12-78); BILIRUBIN,TOTAL 0.4 MG/DL (0.2-1.0); BLOOD UREA NITROGEN 18 MG/DL (7-18); CALCIUM LEVEL 8.9 MG/DL (8.8-10.2); CARBON DIOXIDE LEVEL 28 MEQ/L (21-32); CHLORIDE LEVEL 107 MEQ/L (98-107); CREATININE FOR GFR 0.94 MG/DL (0.55-1.30); GLOMERULAR FILTRATION RATE > 60.0 (>32); GLUCOSE, FASTING 85 MG/DL (70-100); POTASSIUM SERUM 3.3 MEQ/L (3.5-5.1); SODIUM LEVEL 140 MEQ/L (136-145); TOTAL PROTEIN 7.5 GM/DL (6.4-8.2)
== END ==
LOC: SKLAB3 09:21
PROVIDERS: ATTEND Neuromusculoskeletal Medicine & OMM
DX: I10 Essential (primary) hypertension (principal)

== ENCOUNTER → 2021-08-10 | Outpatient (REF) | payer MEDICARE | LOC: SKLAB3 07:38 | PROVIDERS: ATTEND Neuromusculoskeletal Medicine & OMM | DX: Z20.822 Contact with and (suspected) exposure to COVID-19 (principal) ==

== ENCOUNTER → 2021-08-14 | Outpatient (REF) | payer MEDICARE | LOC: SKLAB3 06:58 | PROVIDERS: ATTEND Internal Medicine | DX: Z20.822 Contact with and (suspected) exposure to COVID-19 (principal) ==

== ENCOUNTER → 2021-08-17 | Outpatient (REF) | payer MEDICARE | LOC: SKLAB3 05:38 | PROVIDERS: ATTEND Internal Medicine | DX: Z20.822 Contact with and (suspected) exposure to COVID-19 (principal) ==

== ENCOUNTER → 2021-08-21 | Outpatient (REF) | payer MEDICARE | LOC: SKLAB3 06:16 | PROVIDERS: ATTEND Internal Medicine | DX: Z20.822 Contact with and (suspected) exposure to COVID-19 (principal) ==

== ENCOUNTER → 2021-08-23 | Outpatient (REF) | payer MEDICARE ==
[2021-08-23 11:11] LABS: HEMATOCRIT 34.4 % (36.0-47.0); HEMOGLOBIN 10.8 g/dl (12.0-15.5); MEAN CORPUSCULAR HEMOGLOBIN 26.7 pg (27.0-33.0); MEAN CORPUSCULAR HGB CONC 31.4 g/dl (32.0-36.5); MEAN CORPUSCULAR VOLUME 85.1 fl (80.0-96.0); PLATELET COUNT, AUTOMATED 325 10^3/uL (150-450); RED BLOOD COUNT 4.04 10^6/uL (4.00-5.40)
[2021-08-23 11:47] LABS: ALBUMIN 3.7 GM/DL (3.2-5.2); BILIRUBIN,TOTAL 0.3 MG/DL (0.2-1.0); CALCIUM LEVEL 9.7 MG/DL (8.8-10.2); CREATININE FOR GFR 0.95 MG/DL (0.55-1.30); GLOMERULAR FILTRATION RATE 59.7 (>32); POTASSIUM SERUM 3.6 MEQ/L (3.5-5.1); TOTAL PROTEIN 7.2 GM/DL (6.4-8.2)
== END ==
LOC: SKLAB3 07:57
PROVIDERS: ATTEND Neuromusculoskeletal Medicine & OMM
DX: U07.1 COVID-19 (principal); Z79.899 Other long term (current) drug therapy

== ENCOUNTER → 2021-08-28 | Outpatient (REF) | payer MEDICARE ==
[2021-08-28 09:30] LABS: HEMATOCRIT 31.5 % (36.0-47.0); HEMOGLOBIN 9.7 g/dl (12.0-15.5); MEAN CORPUSCULAR HEMOGLOBIN 26.3 pg (27.0-33.0); MEAN CORPUSCULAR HGB CONC 30.8 g/dl (32.0-36.5); MEAN CORPUSCULAR VOLUME 85.4 fl (80.0-96.0); PLATELET COUNT, AUTOMATED 324 10^3/uL (150-450); RED BLOOD COUNT 3.69 10^6/uL (4.00-5.40); WHITE BLOOD COUNT 4.1 10^3/uL (4.0-10.0)
[2021-08-28 10:01] LABS: ALBUMIN 3.2 GM/DL (3.2-5.2); ALT/SGPT 15 U/L (12-78); BILIRUBIN,TOTAL 0.3 MG/DL (0.2-1.0); BLOOD UREA NITROGEN 17 MG/DL (7-18); CALCIUM LEVEL 9.1 MG/DL (8.8-10.2); CARBON DIOXIDE LEVEL 27 MEQ/L (21-32); CHLORIDE LEVEL 107 MEQ/L (98-107); GLOMERULAR FILTRATION RATE > 60.0 (>32); GLUCOSE, FASTING 115 MG/DL (70-100); POTASSIUM SERUM 4.1 MEQ/L (3.5-5.1); SODIUM LEVEL 139 MEQ/L (136-145); TOTAL PROTEIN 6.1 GM/DL (6.4-8.2)
== END ==
LOC: SKLAB3 08:00
PROVIDERS: ATTEND Neuromusculoskeletal Medicine & OMM
DX: U07.1 COVID-19 (principal); Z79.899 Other long term (current) drug therapy

== ENCOUNTER → 2021-08-31 | Outpatient (REF) | payer MEDICARE ==
[2021-08-31 09:56] LABS: HEMOGLOBIN 9.7 g/dl (12.0-15.5); MEAN CORPUSCULAR HEMOGLOBIN 26.5 pg (27.0-33.0); MEAN CORPUSCULAR HGB CONC 31.3 g/dl (32.0-36.5); MEAN CORPUSCULAR VOLUME 84.7 fl (80.0-96.0); PLATELET COUNT, AUTOMATED 345 10^3/uL (150-450); RED BLOOD COUNT 3.66 10^6/uL (4.00-5.40); WHITE BLOOD COUNT 5.4 10^3/uL (4.0-10.0)
[2021-08-31 10:57] LABS: BLOOD UREA NITROGEN 18 MG/DL (7-18); CARBON DIOXIDE LEVEL 27 MEQ/L (21-32); CHLORIDE LEVEL 106 MEQ/L (98-107); GLOMERULAR FILTRATION RATE > 60.0 (>32); GLUCOSE, FASTING 89 MG/DL (70-100); POTASSIUM SERUM 4.1 MEQ/L (3.5-5.1); SODIUM LEVEL 138 MEQ/L (136-145)
== END ==
LOC: SKLAB3 07:08
PROVIDERS: ATTEND Neuromusculoskeletal Medicine & OMM
DX: U07.1 COVID-19 (principal); Z79.899 Other long term (current) drug therapy

== ENCOUNTER → 2021-12-05 | Outpatient (REF) | payer MEDICARE, MEDICAID ==
[~2021-12-05] MED LIST changes: -LISI20TA20 PO; +LISI20TA37 PO; +OMEP-173 PO; -OMEP-218 PO; +POTA-151 PO; -POTA20TA6 PO
[2021-12-05 15:07] LABS: CHOLESTEROL RISK RATIO 2.352 (<5)
== END ==
LOC: SKLAB4 11:07
PROVIDERS: ATTEND Neuromusculoskeletal Medicine & OMM
DX: E78.5 Hyperlipidemia, unspecified (principal)

== ENCOUNTER → 2022-02-06 | Outpatient (REF) | payer MEDICARE, MEDICAID, SELFPAY ==
[2022-02-06 11:37] LABS: ALBUMIN 3.5 GM/DL (3.2-5.2); ALT/SGPT 23 U/L (12-78); BILIRUBIN,TOTAL 0.3 MG/DL (0.2-1.0); BLOOD UREA NITROGEN 19 MG/DL (7-18); CALCIUM LEVEL 9.2 MG/DL (8.8-10.2); CARBON DIOXIDE LEVEL 28 MEQ/L (21-32); CHLORIDE LEVEL 110 MEQ/L (98-107); CREATININE FOR GFR 0.84 MG/DL (0.55-1.30); GLOMERULAR FILTRATION RATE > 60.0 (>32); GLUCOSE, FASTING 105 MG/DL (70-100); POTASSIUM SERUM 3.7 MEQ/L (3.5-5.1); SODIUM LEVEL 145 MEQ/L (136-145); TOTAL PROTEIN 6.3 GM/DL (6.4-8.2)
== END ==
LOC: SKLAB3 11:35
PROVIDERS: ATTEND Neuromusculoskeletal Medicine & OMM
DX: I50.9 Heart failure, unspecified (principal)

== ENCOUNTER → 2022-04-05 | Outpatient (REF) | payer MEDICARE, MEDICAID ==
[~2022-04-05] MED LIST changes: -AZAT50TA2 PO; +AZAT50TA37 PO
[2022-04-05 10:06] LABS: CHOLESTEROL RISK RATIO 2.011 (<5)
== END ==
LOC: SKLAB3 09:02
PROVIDERS: ATTEND Nurse Practitioner
DX: E78.5 Hyperlipidemia, unspecified (principal)

== ENCOUNTER → 2022-05-18 | Outpatient (REF) | payer MEDICARE, MEDICAID, SELFPAY | LOC: SKLAB3 12:14 | PROVIDERS: ATTEND Neuromusculoskeletal Medicine & OMM | DX: Z20.822 Contact with and (suspected) exposure to COVID-19 (principal) ==

== ENCOUNTER → 2022-08-07 | Outpatient (REF) | payer MEDICARE, MEDICAID, SELFPAY ==
[~2022-08-07] MED LIST changes: +EZET-18 PO; -VYTO10TA22 PO
[2022-08-07 09:28] LABS: ALBUMIN 3.6 GM/DL (3.2-5.2); ALT/SGPT 15 U/L (12-78); BILIRUBIN,TOTAL 0.4 MG/DL (0.2-1.0); BLOOD UREA NITROGEN 18 MG/DL (7-18); CARBON DIOXIDE LEVEL 27 MEQ/L (21-32); CHLORIDE LEVEL 111 MEQ/L (98-107); CHOLESTEROL LEVEL 165 MG/DL (<200); CHOLESTEROL RISK RATIO 1.941 (<5); CREATININE FOR GFR 0.82 MG/DL (0.55-1.30); GLOMERULAR FILTRATION RATE > 60.0 (>32); GLUCOSE, FASTING 99 MG/DL (70-100); HDL CHOLESTEROL 85 MG/DL (>40); LDL CHOLESTEROL 59 MG/DL (<100); NON-HDL-C 80 MG/DL; POTASSIUM SERUM 3.9 MEQ/L (3.5-5.1); SODIUM LEVEL 145 MEQ/L (136-145); TOTAL PROTEIN 6.5 GM/DL (6.4-8.2); TRIGLYCERIDES LEVEL 103 MG/DL (<150)
== END ==
LOC: SKLAB3 07:00
PROVIDERS: ATTEND Nurse Practitioner
DX: I10 Essential (primary) hypertension (principal); Z79.01 Long term (current) use of anticoagulants

== ENCOUNTER → 2022-10-05 | Outpatient (REF) | payer MEDICARE, MEDICAID, SELFPAY | LOC: SKLAB3 11:39 | PROVIDERS: ATTEND Nurse Practitioner | DX: E78.5 Hyperlipidemia, unspecified (principal) ==

== ENCOUNTER → 2022-10-09 | Outpatient (REF) | payer MEDICARE, MEDICAID, SELFPAY ==
[2022-10-09 08:55] LABS: CHOLESTEROL RISK RATIO 2.32 (<5); HDL CHOLESTEROL 66.8 MG/DL (>40); LDL CHOLESTEROL 67.6 MG/DL (<100)
== END ==
LOC: SKLAB3 09:16
PROVIDERS: ATTEND Nurse Practitioner
DX: E78.5 Hyperlipidemia, unspecified (principal)

== ENCOUNTER → 2022-12-10 | Outpatient (REF) | payer MEDICARE, MEDICAID, SELFPAY ==
[2022-12-10 17:08] LABS: APPEARANCE, URINE CLEAR (CLEAR); BACTERIA, URINE AUTO 1+ (NEGATIVE); BILIRUBIN, URINE AUTO NEGATIVE (NEGATIVE); BLOOD, URINE BLOOD NEGATIVE (NEGATIVE); COLOR, URINE YELLOW (YELLOW); GLUCOSE, URINE (UA) AUTO NEGATIVE (NEGATIVE); KETONE, URINE AUTO NEGATIVE (NEGATIVE); LEUKOCYTE ESTERASE, URINE AUTO TRACE (NEGATIVE); MUCUS, URINE SMALL (NEGATIVE); NITRITE, URINE AUTO POSITIVE (NEGATIVE); PROTEIN, URINE AUTO NEGATIVE (NEGATIVE); RBC, URINE AUTO 1 /HPF (0-3); SPECIFIC GRAVITY URINE AUTO 1.013 (1.002-1.035); SQUAMOUS EPITHELIAL CELL UR AU 2 /HPF (0-6); UROBILINOGEN, URINE AUTO 0.2 mg/dL (0.0-2.0); WBC, URINE AUTO 2 /HPF (0-3)
== END ==
LOC: SKLAB3 11:55
PROVIDERS: ATTEND Nurse Practitioner
DX: R35.0 Frequency of micturition (principal)

== ENCOUNTER → 2022-12-11 | Outpatient (REF) | payer MEDICARE, MEDICAID, SELFPAY ==
[2022-12-11 08:31] LABS: HEMATOCRIT 29.1 % (36.0-47.0); HEMOGLOBIN 8.4 g/dl (12.0-15.5); MEAN CORPUSCULAR HEMOGLOBIN 22.8 pg (27.0-33.0); MEAN CORPUSCULAR HGB CONC 28.9 g/dl (32.0-36.5); MEAN CORPUSCULAR VOLUME 79.1 fl (80.0-96.0); PLATELET COUNT, AUTOMATED 321 10^3/uL (150-450); RED BLOOD COUNT 3.68 10^6/uL (4.00-5.40); WHITE BLOOD COUNT 4.8 10^3/uL (4.0-10.0)
[2022-12-11 09:51] LABS: ALBUMIN 3.6 G/DL (3.2-5.2); ALKALINE PHOSPHATASE 68 U/L (46-116); ALT/SGPT 14 U/L (7.0-40); AST/SGOT 17 U/L (<34); BILIRUBIN,TOTAL 0.4 MG/DL (0.3-1.2); BLOOD UREA NITROGEN 27 MG/DL (9-23); CALCIUM LEVEL 8.8 MG/DL (8.3-10.6); CARBON DIOXIDE LEVEL 26 MMOL/L (20-31); CHLORIDE LEVEL 109 MMOL/L (98-107); CREATININE FOR GFR 0.87 MG/DL (0.55-1.30); GLOMERULAR FILTRATION RATE > 60.0 (>32); GLUCOSE, FASTING 95 MG/DL (74-106); POTASSIUM SERUM 3.9 MMOL/L (3.5-5.1); SODIUM LEVEL 143 MMOL/L (136-145); TOTAL PROTEIN 6.3 G/DL (5.7-8.2)
== END ==
LOC: SKLAB3 10:05
PROVIDERS: ATTEND Nurse Practitioner
DX: D64.9 Anemia, unspecified (principal); F03.90 Unspecified dementia, unspecified severity, without behavioral disturbance, psychotic disturbance, mood disturbance, and anxiety

== ENCOUNTER → 2022-12-16 | Outpatient (REF) | LOC: SKLAB3 11:12 | PROVIDERS: ATTEND Internal Medicine | DX: D64.9 Anemia, unspecified (principal) ==

== ENCOUNTER → 2022-12-18 | Outpatient (REF) | payer MEDICARE, MEDICAID, SELFPAY | LOC: SKLAB3 09:06 | PROVIDERS: ATTEND Nurse Practitioner | DX: D64.9 Anemia, unspecified (principal) ==

== ENCOUNTER → 2022-12-25 | Outpatient (REF) | payer MEDICARE, MEDICAID, SELFPAY ==
[2022-12-25 06:54] LABS: HEMATOCRIT 27.3 % (36.0-47.0); HEMOGLOBIN 8.2 g/dl (12.0-15.5); MEAN CORPUSCULAR HEMOGLOBIN 24.1 pg (27.0-33.0); MEAN CORPUSCULAR VOLUME 80.3 fl (80.0-96.0); PLATELET COUNT, AUTOMATED 290 10^3/uL (150-450); WHITE BLOOD COUNT 5.1 10^3/uL (4.0-10.0)
== END ==
LOC: SKLAB3 07:00
PROVIDERS: ATTEND Nurse Practitioner
DX: D64.9 Anemia, unspecified (principal)

== ENCOUNTER → 2022-12-31 | Outpatient (REF) | payer MEDICARE, MEDICAID, SELFPAY | LOC: SKLAB3 10:43 | PROVIDERS: ATTEND Nurse Practitioner | DX: D64.9 Anemia, unspecified (principal) ==

== ENCOUNTER → 2023-01-01 | Outpatient (REF) | payer MEDICARE, MEDICAID, SELFPAY ==
[2023-01-01 07:15] LABS: HEMATOCRIT 29.5 % (36.0-47.0); MEAN CORPUSCULAR HEMOGLOBIN 24.8 pg (27.0-33.0); MEAN CORPUSCULAR HGB CONC 30.5 g/dl (32.0-36.5); MEAN CORPUSCULAR VOLUME 81.3 fl (80.0-96.0); PLATELET COUNT, AUTOMATED 313 10^3/uL (150-450); RED BLOOD COUNT 3.63 10^6/uL (4.00-5.40); WHITE BLOOD COUNT 4.9 10^3/uL (4.0-10.0)
== END ==
LOC: SKLAB3 07:00
PROVIDERS: ATTEND Nurse Practitioner
DX: D64.9 Anemia, unspecified (principal)

== ENCOUNTER → 2023-01-08 | Outpatient (REF) | payer MEDICARE, MEDICAID, SELFPAY ==
[2023-01-08 10:17] LABS: HEMATOCRIT 31.5 % (36.0-47.0); HEMOGLOBIN 9.4 g/dl (12.0-15.5); MEAN CORPUSCULAR HEMOGLOBIN 25.1 pg (27.0-33.0); MEAN CORPUSCULAR HGB CONC 29.8 g/dl (32.0-36.5); PLATELET COUNT, AUTOMATED 300 10^3/uL (150-450); RED BLOOD COUNT 3.75 10^6/uL (4.00-5.40); WHITE BLOOD COUNT 4.7 10^3/uL (4.0-10.0)
== END ==
LOC: SKLAB3 12:08
PROVIDERS: ATTEND Nurse Practitioner
DX: D64.9 Anemia, unspecified (principal)

== ENCOUNTER → 2023-01-15 | Outpatient (REF) | payer MEDICARE, MEDICAID, SELFPAY ==
[~2023-01-15] MED LIST changes: +ACET1TAB37 PO; +ATOR1TAB21 PO; +FERR325T3 PO; +MELA5TAB47 PO; +PRIL20TA2 PO; +SERT50TA29 PO; +SPIR-10 PO; +VITA500C24 PO
[2023-01-15 09:34] LABS: HEMATOCRIT 34.1 % (36.0-47.0); HEMOGLOBIN 10.3 g/dl (12.0-15.5); MEAN CORPUSCULAR HEMOGLOBIN 25.4 pg (27.0-33.0); MEAN CORPUSCULAR HGB CONC 30.2 g/dl (32.0-36.5); PLATELET COUNT, AUTOMATED 288 10^3/uL (150-450); RED BLOOD COUNT 4.06 10^6/uL (4.00-5.40); WHITE BLOOD COUNT 5.3 10^3/uL (4.0-10.0)
== END ==
LOC: SKLAB3 11:22
PROVIDERS: ATTEND Nurse Practitioner
DX: D64.9 Anemia, unspecified (principal)

== ENCOUNTER 2023-01-22 12:40 | Outpatient (CLI) | payer MEDICARE, MEDICAID ==
[~2023-01-22] VITALS: Ht 165.1 cm; Wt 63.0 kg
[~2023-01-22 12:40] MED LIST changes: +ACETAMINOPHEN TAB 650MG DOSE (2X325MG) PO ONE; +VEDOLIZUMAB 300 MG in NS 250 ML IV ONE; +diphenhydrAMINE 25MG CAP PO ONE
[2023-01-22 13:12] VITALS: BP 110/52
[2023-01-22] MEDS ORDERED: VEDOLIZUMAB 300 MG in NS 250 ML IV ONE (13:30)
[2023-01-22] MEDS ORDERED: diphenhydrAMINE 25MG CAP PO ONE (13:30)
[2023-01-22] MEDS ORDERED: ACETAMINOPHEN TAB 650MG DOSE (2X325MG) PO ONE (13:30)
[2023-01-22 14:07] VITALS: BP 117/57
== END 2023-01-22 14:05 | disposition home or self-care (01) ==
LOC: M INFU 12:40
PROVIDERS: ATTEND Internal Medicine Gastroenterology
DX: K51.90 Ulcerative colitis, unspecified, without complications (principal); D64.9 Anemia, unspecified
CPT/HCPCS: 36415; 82607; 83540; 85025; 85046; 96365; J3380

== ENCOUNTER → 2023-01-22 | Outpatient (REF) | payer MEDICARE, MEDICAID, SELFPAY ==
[2023-01-22 09:16] LABS: BASO # 0.1 10^3/uL (0.0-0.2); EOS # 0.4 10^3/uL (0.0-0.5); HEMATOCRIT 35.8 % (36.0-47.0); LYMPH # 1.3 10^3/uL (1.5-5.0); LYMPH % 21.3 % (24.0-44.0); MEAN CORPUSCULAR HEMOGLOBIN 26.1 pg (27.0-33.0); MEAN CORPUSCULAR HGB CONC 30.7 g/dl (32.0-36.5); MEAN CORPUSCULAR VOLUME 84.8 fl (80.0-96.0); MONO # 0.5 10^3/uL (0.0-0.8); MONO % 7.8 % (2.0-8.0); NEUTROPHILS # 3.7 10^3/uL (1.5-8.5); NEUTROPHILS % 62.6 % (36.0-66.0); PLATELET COUNT, AUTOMATED 310 10^3/uL (150-450); RED BLOOD COUNT 4.22 10^6/uL (4.00-5.40); WHITE BLOOD COUNT 5.9 10^3/uL (4.0-10.0)
[2023-01-22 09:25] LABS: IRON (FE) 25 UG/DL (50-170)
[2023-01-22 09:27] LABS: VITAMIN B12 LEVEL 453 PG/ML (211-911)
== END ==
LOC: SKLAB3 09:19
PROVIDERS: ATTEND Nurse Practitioner
DX: D64.9 Anemia, unspecified (principal)

== ENCOUNTER 2023-02-04 12:09 | Day surgery (SDC) | payer MEDICARE, MEDICAID ==
[~2023-02-04] VITALS: Ht 160 cm; Wt 60.1 kg
[~2023-02-04 12:09] MED LIST changes: -ACETAMINOPHEN TAB 650MG DOSE (2X325MG) PO ONE; +NS 1,000 ML IV ONE; -VEDOLIZUMAB 300 MG in NS 250 ML IV ONE; -diphenhydrAMINE 25MG CAP PO ONE
[2023-02-04] MEDS ORDERED: propofoL 200 MG/20 ML VIAL As Ordered ONE (14:32)
[2023-02-04] MEDS ORDERED: fentaNYL 100 MCG/2 ML INJECTION As Ordered ONE (14:32)
[2023-02-04] MEDS ORDERED: LIDOCAINE 2% 100MG/5ML SDV (FOR ANES.) As Ordered ONE (14:32)
[2023-02-04] MEDS ORDERED: PHENYLephrine 500MCG 5ML (100MCG/ML) SYRINGE As Ordered ONE (14:50)
[2023-02-04 15:38] VITALS: BP 138/64
== END 2023-02-04 15:41 | disposition home or self-care (01) ==
LOC: M OPP 12:09
PROVIDERS: ATTEND Internal Medicine Gastroenterology
DX: K44.9 Diaphragmatic hernia without obstruction or gangrene (principal); K25.9 Gastric ulcer, unspecified as acute or chronic, without hemorrhage or perforation; K64.0 First degree hemorrhoids; K57.30 Diverticulosis of large intestine without perforation or abscess without bleeding; D50.9 Iron deficiency anemia, unspecified; R63.4 Abnormal weight loss; K62.5 Hemorrhage of anus and rectum
CPT/HCPCS: 43239; 45378; 88305; J2370; J3010

== ENCOUNTER 2023-02-05 13:10 | Outpatient (CLI) | payer MEDICARE, MEDICAID ==
[~2023-02-05] VITALS: Ht 160 cm; Wt 63.0 kg
[2023-02-05 13:10] VITALS: BP 98/52
[~2023-02-05 13:10] MED LIST changes: -NS 1,000 ML IV ONE
[2023-02-05] MEDS ORDERED: VEDOLIZUMAB 300 MG in NS 250 ML IV ONE (13:30)
[2023-02-05] MEDS ORDERED: ACETAMINOPHEN TAB 650MG DOSE (2X325MG) PO ONE (13:30)
[2023-02-05] MEDS ORDERED: diphenhydrAMINE 25MG CAP PO ONE (13:30)
[2023-02-05 14:21] VITALS: BP 90/47
== END 2023-02-05 14:20 | disposition home or self-care (01) ==
LOC: M INFU 13:10
PROVIDERS: ATTEND Internal Medicine Gastroenterology
DX: K51.90 Ulcerative colitis, unspecified, without complications (principal)
CPT/HCPCS: 96365; J3380

== ENCOUNTER → 2023-02-21 | Outpatient (REF) | payer MEDICARE, MEDICAID ==
[2023-02-21 07:31] LABS: HEMATOCRIT 34.1 % (36.0-47.0); HEMOGLOBIN 10.7 g/dl (12.0-15.5); MEAN CORPUSCULAR HEMOGLOBIN 27.2 pg (27.0-33.0); MEAN CORPUSCULAR HGB CONC 31.4 g/dl (32.0-36.5); MEAN CORPUSCULAR VOLUME 86.5 fl (80.0-96.0); PLATELET COUNT, AUTOMATED 261 10^3/uL (150-450); RED BLOOD COUNT 3.94 10^6/uL (4.00-5.40); WHITE BLOOD COUNT 6.2 10^3/uL (4.0-10.0)
== END ==
LOC: SKLAB3 07:00
PROVIDERS: ATTEND Nurse Practitioner
DX: D64.9 Anemia, unspecified (principal)

== ENCOUNTER 2023-03-05 13:35 | Outpatient (CLI) | payer MEDICARE, MEDICAID ==
[~2023-03-05] VITALS: Ht 160 cm; Wt 63.0 kg
[~2023-03-05 13:35] MED LIST changes: +ACETAMINOPHEN TAB 650MG DOSE (2X325MG) PO ONE; +VEDOLIZUMAB 300 MG in NS 250 ML IV ONE; +diphenhydrAMINE 25MG CAP PO ONE
[2023-03-05 13:42] VITALS: BP 141/58
[2023-03-05 14:50] VITALS: BP 106/51
== END 2023-03-05 14:45 | disposition home or self-care (01) ==
LOC: M INFU 13:35
PROVIDERS: ATTEND Internal Medicine Gastroenterology
DX: K51.90 Ulcerative colitis, unspecified, without complications (principal)
CPT/HCPCS: 96365; J3380

== ENCOUNTER → 2023-04-19 | Outpatient (REF) | payer MEDICARE, MEDICAID ==
[~2023-04-19] MED LIST changes: -ACETAMINOPHEN TAB 650MG DOSE (2X325MG) PO ONE; -VEDOLIZUMAB 300 MG in NS 250 ML IV ONE; -diphenhydrAMINE 25MG CAP PO ONE
[2023-04-19 08:23] LABS: HEMATOCRIT 34.4 % (36.0-47.0); MEAN CORPUSCULAR HEMOGLOBIN 28.8 pg (27.0-33.0); MEAN CORPUSCULAR VOLUME 90.1 fl (80.0-96.0); PLATELET COUNT, AUTOMATED 231 10^3/uL (150-450); RED BLOOD COUNT 3.82 10^6/uL (4.00-5.40); WHITE BLOOD COUNT 4.9 10^3/uL (4.0-10.0)
== END ==
LOC: SKLAB3 13:45
PROVIDERS: ATTEND Nurse Practitioner
DX: D64.9 Anemia, unspecified (principal)

== ENCOUNTER 2023-04-30 13:30 | Outpatient (CLI) | payer MEDICARE ==
[~2023-04-30] VITALS: Ht 160 cm; Wt 63.0 kg
[2023-04-30 13:20] VITALS: BP 115/56; O2SAT 97
[~2023-04-30 13:30] MED LIST changes: +ACETAMINOPHEN TAB 650MG DOSE (2X325MG) PO ONE; +DICY-61 PO; -DICY10CA13 PO; +VEDOLIZUMAB 300 MG in NS 250 ML IV ONE; +diphenhydrAMINE 25MG CAP PO ONE
[2023-04-30 15:00] VITALS: BP 112/57; O2SAT 96
== END 2023-04-30 15:00 ==
LOC: M INFU 13:30
PROVIDERS: ATTEND Internal Medicine Gastroenterology
DX: K51.90 Ulcerative colitis, unspecified, without complications (principal)
CPT/HCPCS: 96365; J3380

== ENCOUNTER → 2023-05-01 | Outpatient (REF) | payer MEDICARE ==
[~2023-05-01] MED LIST changes: -ACETAMINOPHEN TAB 650MG DOSE (2X325MG) PO ONE; -VEDOLIZUMAB 300 MG in NS 250 ML IV ONE; -diphenhydrAMINE 25MG CAP PO ONE
== END ==
LOC: SKLAB3 08:52
PROVIDERS: ATTEND Nurse Practitioner
DX: R06.02 Shortness of breath (principal); J44.9 Chronic obstructive pulmonary disease, unspecified; R91.8 Other nonspecific abnormal finding of lung field; I51.7 Cardiomegaly

== ENCOUNTER → 2023-05-02 | Outpatient (REF) | payer MEDICARE ==
[2023-05-02 10:29] LABS: HEMOGLOBIN 12.7 g/dl (12.0-15.5); MEAN CORPUSCULAR HEMOGLOBIN 28.9 pg (27.0-33.0); MEAN CORPUSCULAR HGB CONC 32.6 g/dl (32.0-36.5); MEAN CORPUSCULAR VOLUME 88.6 fl (80.0-96.0); PLATELET COUNT, AUTOMATED 303 10^3/uL (150-450); WHITE BLOOD COUNT 6.2 10^3/uL (4.0-10.0)
[2023-05-02 11:00] LABS: BLOOD UREA NITROGEN 19 MG/DL (9-23); CALCIUM LEVEL 10.1 MG/DL (8.3-10.6); CARBON DIOXIDE LEVEL 24 MMOL/L (20-31); CHLORIDE LEVEL 108 MMOL/L (98-107); CREATININE FOR GFR 0.75 MG/DL (0.55-1.30); GLOMERULAR FILTRATION RATE > 60.0 (>32); GLUCOSE, FASTING 104 MG/DL (74-106); POTASSIUM SERUM 3.5 MMOL/L (3.5-5.1); SODIUM LEVEL 142 MMOL/L (136-145)
== END ==
LOC: SKLAB3 09:03
PROVIDERS: ATTEND Nurse Practitioner
DX: Z01.89 Encounter for other specified special examinations (principal); Z79.899 Other long term (current) drug therapy

== ENCOUNTER → 2023-05-27 | Outpatient (REF) | payer MEDICARE ==
[~2023-05-27] MED LIST changes: +ARTIDRO OU; +SUCR1TAB56 PO
[2023-05-27 12:05] LABS: APPEARANCE, URINE HAZY (CLEAR); BACTERIA, URINE AUTO NEGATIVE (NEGATIVE); BILIRUBIN, URINE AUTO NEGATIVE (NEGATIVE); BLOOD, URINE BLOOD NEGATIVE (NEGATIVE); COLOR, URINE YELLOW (YELLOW); GLUCOSE, URINE (UA) AUTO NEGATIVE (NEGATIVE); KETONE, URINE AUTO NEGATIVE (NEGATIVE); LEUKOCYTE ESTERASE, URINE AUTO 1+ (NEGATIVE); MUCUS, URINE SMALL (NEGATIVE); NITRITE, URINE AUTO NEGATIVE (NEGATIVE); PROTEIN, URINE AUTO 2+ mg/dL (NEGATIVE); RBC, URINE AUTO 1 /HPF (0-3); SPECIFIC GRAVITY URINE AUTO 1.025 (1.002-1.035); SQUAMOUS EPITHELIAL CELL UR AU 6 /HPF (0-6); WBC, URINE AUTO 9 /HPF (0-3)
== END ==
LOC: SKLAB3 11:17
PROVIDERS: ATTEND Nurse Practitioner
DX: R41.82 Altered mental status, unspecified (principal)